=== PATIENT | female | born 1955 | race Caucasian/White ===

== ENCOUNTER 2016-11-16 23:12 | Inpatient (IN) | payer MEDICAID ==
[~2016-11-16] VITALS: Ht 162.6 cm; Wt 85.9 kg
[~2016-11-16 23:12] MED LIST: ATOR40TA52 PO; BENZ100C97 PO; BUPR200T8 PO; BUSP5TAB51 PO; CYAN100L PO; DIPH2.5T47 PO; DULO60CA PO; ENAL2.5T PO; FURO20TA3 PO; LEVO750T3 PO; MELO-86 PO; OMEP20CA5 PO; PERCOT PO; POT8T PO; PROP80CA10 PO; SACC250C PO; TRAZ150T79 PO
[2016-11-17 00:16] LABS: Basophils # (auto) 0 uL; Basophils % (auto) 0.1 % (0.0-2.0); Eosinophils # (auto) 0.5 uL; Hematocrit 33.8 % (36.0-46.0); Hemoglobin 10.7 g/dL (12.2-16.2); Lymphocytes # (auto) 0.9 uL; Lymphocytes % (auto) 7.6 % (10.0-50.0); Mean Corpuscular Hemoglobin 29.4 pg (28.0-32.0); Mean Corpuscular Hgb Conc. 31.6 g/dL (32.0-36.0); Mean Corpuscular Volume 93.1 fL (80.0-100.0); Mean Platelet Volume 7.5 fL (7.4-10.4); Monocytes # (auto) 0.7 uL; Monocytes % (auto) 5.8 % (0.0-12.0); Neutrophils # (auto) 9.5 uL; Neutrophils % (auto) 82.5 % (37.0-80.0); Platelet Count (auto) 289 10^3/uL (140-450); Red Cell Distribution Width 15.3 % (11.6-16.0); SUSPECT VIEW TRANSMISSION; White Blood Cell 11.5 10^3/uL (4.4-10.8)
[2016-11-17 00:37] LABS: INR 1.05 (0.9-1.15); Partial Thromboplastin Time 26.8 sec (22.64-33.71); Prothrombin Time 10.8 sec (9.37-12.3)
[2016-11-17 00:39] LABS: Albumin 2.6 g/dL (3.4-5.0); Anion Gap 9 (5-15); Aspartate Aminotransferase 11 U/L (15-37); BUN/Creatinine Ratio 15.3; Blood Urea Nitrogen 13 mg/dL (7-18); Calcium 8.4 mg/dL (8.5-10.1); Carbon Dioxide 30 mmol/L (21-32); Chloride 102 mmol/L (98-107); GFR African American 87 mL/min; GFR Non-African American 72 mL/min; Glucose 114 mg/dL (74-106); Potassium 4.6 mmol/L (3.5-5.1); Sodium 141 mmol/L (136-145)
[2016-11-17 00:42] LABS: Alkaline Phosphatase 53 U/L (45-117); Bilirubin, Total 0.4 mg/dL (0.2-1.0); Total Protein 5.7 g/dL (6.4-8.2)
[2016-11-17 00:47] LABS: B-Type Natriuretic Peptide 32.7 pg/mL (0-100)
[2016-11-17 00:56] LABS: Temperature: 20.7 C (20.0-25.0)
[2016-11-17] MEDS ORDERED: LEVOFLOXACIN 500MG 100 ML IV ONE (02:00)
[2016-11-17] MEDS ORDERED: ALBUTEROL SULF 2.5 MG/0.5ML(0.5%) NEB SOLN NEB ONE (02:00)
[2016-11-17] MEDS ORDERED: ONDANSETRON HCL 4 MG/2 ML VIAL IV ONE (02:00)
[2016-11-17] MEDS ORDERED: IPRATROPIUM BROM 0.5 MG/2.5ML INH SOL NEB ONE (02:00)
[2016-11-17] MEDS ORDERED: HYDROmorphone HCL 2 MG/ML VL IV ONE ×2 (02:00→05:15)
[2016-11-17] MEDS ORDERED: methylPREDNISolone SOD SUCC 125 MG/2 ML VL IV SCH (07:00)
[2016-11-17] MEDS ORDERED: SODIUM CHLORIDE 0.9% 1,000 ML IV SCH (07:16)
[2016-11-17] MEDS ORDERED: LACTULOSE 20Gm/30ML SOLN PO PRN (07:30)
[2016-11-17] MEDS: DULoxetine HCL 30 MG CAP PO SCH ×2 (08:52→22:00)
[2016-11-17] MEDS: POTASSIUM CHLORIDE 8 MEQ TAB PO SCH (08:52)
[2016-11-17] MEDS: FUROSEMIDE 20 MG TAB PO SCH (08:53)
[2016-11-17] MEDS: PANTOPRAZOLE SODIUM 40 MG/10 ML VIAL IV SCH (08:53)
[2016-11-17] MEDS: ENALAPRIL MALEATE 2.5 MG TAB PO SCH (08:55)
[2016-11-17] MEDS: ENOXAPARIN SOD 40 MG/0.4 ML SYRINGE SC SCH (09:00)
[2016-11-17 10:00] VITALS: BP 106/69
[2016-11-17] MEDS ORDERED: ENOXAPARIN SOD 30 MG/0.3 ML SYRINGE SC SCH (10:00)
[2016-11-17] MEDS ORDERED: PROPRANOLOL HCL 20 MG TAB PO SCH (10:00)
[2016-11-17] MEDS: ALBUTEROL SULF 2.5 MG/0.5ML(0.5%) NEB SOLN NEB SCH ×4 (10:09→22:50)
[2016-11-17] MEDS: IPRATROPIUM BROM 0.5 MG/2.5ML INH SOL NEB SCH ×4 (10:10→22:50)
[2016-11-17] MEDS ORDERED: PIPERACILLIN-TAZOB 2.25GM 50 ML IV SCH (12:00)
[2016-11-17] MEDS: PROPRANOLOL HCL 20 MG TAB PO SCH ×3 (12:00→22:00)
[2016-11-17 13:00] VITALS: BP 107/71
[2016-11-17] MEDS: busPIRone HCL 10 MG TAB PO SCH ×2 (14:19→21:57)
[2016-11-17] MEDS: OXYCODONE W/ ACETAMINOPHEN 5/325MG TABLET PO PRN (15:23)
[2016-11-17 16:59] VITALS: BP 104/67
[2016-11-17] MEDS: methylPREDNISolone SOD SUCC 40 MG/ML VL IV SCH ×2 (18:07→23:54)
[2016-11-17] MEDS: buPROPion HCL 100 MG TAB PO SCH (18:08)
[2016-11-17 20:00] VITALS: BP 85/58
[2016-11-17] MEDS: BUDESONIDE (INHALATION) 0.5 MG/2 ML NEB NEB SCH (20:16)
[2016-11-17 21:01] VITALS: BP 104/67
[2016-11-17] MEDS: traZODone HCL 50 MG TAB PO SCH (21:57)
[2016-11-17] MEDS: ATORVASTATIN 20 MG TAB PO SCH (22:00)
[2016-11-17 22:19] VITALS: BP 99/67
[2016-11-18] MEDS: LEVOFLOXACIN 500MG 100 ML IV SCH (01:58)
[2016-11-18] MEDS: IPRATROPIUM BROM 0.5 MG/2.5ML INH SOL NEB SCH ×6 (02:26→22:00)
[2016-11-18] MEDS: ALBUTEROL SULF 2.5 MG/0.5ML(0.5%) NEB SOLN NEB SCH ×6 (02:26→22:00)
[2016-11-18 05:10] VITALS: BP 111/72
[2016-11-18] MEDS: busPIRone HCL 10 MG TAB PO SCH ×3 (05:28→22:00)
[2016-11-18] MEDS: methylPREDNISolone SOD SUCC 40 MG/ML VL IV SCH ×3 (05:28→18:18)
[2016-11-18] MEDS: PROPRANOLOL HCL 20 MG TAB PO SCH ×4 (06:00→22:00)
[2016-11-18] MEDS: BUDESONIDE (INHALATION) 0.5 MG/2 ML NEB NEB SCH ×2 (06:09→22:00)
[2016-11-18] MEDS: buPROPion HCL 100 MG TAB PO SCH ×2 (06:22→21:01)
[2016-11-18 06:36] LABS: Basophils # (auto) 0 uL; Eosinophils # (auto) 0 uL; Eosinophils % (auto) 0.1 % (0.0-7.0); Hematocrit 30.6 % (36.0-46.0); Hemoglobin 9.6 g/dL (12.2-16.2); Lymphocytes # (auto) 0.4 uL; Lymphocytes % (auto) 5.7 % (10.0-50.0); Mean Corpuscular Hemoglobin 29.6 pg (28.0-32.0); Mean Corpuscular Hgb Conc. 31.5 g/dL (32.0-36.0); Mean Corpuscular Volume 93.9 fL (80.0-100.0); Mean Platelet Volume 7.6 fL (7.4-10.4); Monocytes # (auto) 0.4 uL; Monocytes % (auto) 5.5 % (0.0-12.0); Neutrophils # (auto) 6.3 uL; Neutrophils % (auto) 88.7 % (37.0-80.0); Platelet Count (auto) 300 10^3/uL (140-450); Red Cell Distribution Width 15.1 % (11.6-16.0); White Blood Cell 7.1 10^3/uL (4.4-10.8)
[2016-11-18 06:51] LABS: Albumin 2.3 g/dL (3.4-5.0); BUN/Creatinine Ratio 25.7; Bilirubin, Total 0.1 mg/dL (0.2-1.0); Calcium 8.9 mg/dL (8.5-10.1); Potassium 4.2 mmol/L (3.5-5.1); Total Protein 6.3 g/dL (6.4-8.2)
[2016-11-18 09:00] VITALS: BP 99/67
[2016-11-18] MEDS: PANTOPRAZOLE SODIUM 40 MG/10 ML VIAL IV SCH (09:42)
[2016-11-18] MEDS: ENOXAPARIN SOD 40 MG/0.4 ML SYRINGE SC SCH (09:43)
[2016-11-18] MEDS: DULoxetine HCL 30 MG CAP PO SCH ×2 (09:43→22:01)
[2016-11-18] MEDS: FUROSEMIDE 20 MG TAB PO SCH (09:44)
[2016-11-18] MEDS: OXYCODONE W/ ACETAMINOPHEN 5/325MG TABLET PO PRN ×2 (09:44→16:16)
[2016-11-18] MEDS: POTASSIUM CHLORIDE 8 MEQ TAB PO SCH (09:45)
[2016-11-18] MEDS: ENALAPRIL MALEATE 2.5 MG TAB PO SCH (10:00)
[2016-11-18 13:00] VITALS: BP 115/73
[2016-11-18 20:00] VITALS: BP 119/79
[2016-11-18 21:59] VITALS: BP 119/79
[2016-11-18] MEDS: traZODone HCL 50 MG TAB PO SCH (22:01)
[2016-11-18] MEDS: ATORVASTATIN 20 MG TAB PO SCH (22:01)
[2016-11-19] MEDS: methylPREDNISolone SOD SUCC 40 MG/ML VL IV SCH ×2 (00:26→05:17)
[2016-11-19] MEDS: LEVOFLOXACIN 500MG 100 ML IV SCH (01:33)
[2016-11-19] MEDS: IPRATROPIUM BROM 0.5 MG/2.5ML INH SOL NEB SCH ×3 (02:00→10:32)
[2016-11-19] MEDS: ALBUTEROL SULF 2.5 MG/0.5ML(0.5%) NEB SOLN NEB SCH ×3 (02:00→10:32)
[2016-11-19 04:45] VITALS: BP 110/71
[2016-11-19] MEDS: buPROPion HCL 100 MG TAB PO SCH (05:55)
[2016-11-19] MEDS: busPIRone HCL 10 MG TAB PO SCH (05:55)
[2016-11-19] MEDS: PROPRANOLOL HCL 20 MG TAB PO SCH (05:57)
[2016-11-19] MEDS: BUDESONIDE (INHALATION) 0.5 MG/2 ML NEB NEB SCH (06:27)
[2016-11-19 09:00] VITALS: BP 136/84
[2016-11-19] MEDS: OXYCODONE W/ ACETAMINOPHEN 5/325MG TABLET PO PRN (09:11)
== END 2016-11-19 11:15 | disposition home or self-care (01) | DRG 139 ==
LOC: ER 23:12 → TELE 23:13 → TELE-EAST 11-17 10:00 → EAST 11-18 23:51
PROVIDERS: ADMIT Family Medicine; ATTEND Hospitalist
DX: J18.1 Lobar pneumonia, unspecified organism (principal); J96.21 Acute and chronic respiratory failure with hypoxia; J44.0 Chronic obstructive pulmonary disease with (acute) lower respiratory infection; J44.1 Chronic obstructive pulmonary disease with (acute) exacerbation; J45.31 Mild persistent asthma with (acute) exacerbation; F03.90 Unspecified dementia, unspecified severity, without behavioral disturbance, psychotic disturbance, mood disturbance, and anxiety; I50.9 Heart failure, unspecified; I11.0 Hypertensive heart disease with heart failure; Z99.81 Dependence on supplemental oxygen; K27.9 Peptic ulcer, site unspecified, unspecified as acute or chronic, without hemorrhage or perforation; E78.5 Hyperlipidemia, unspecified; K21.9 Gastro-esophageal reflux disease without esophagitis; Z85.118 Personal history of other malignant neoplasm of bronchus and lung; Z92.21 Personal history of antineoplastic chemotherapy; Z92.3 Personal history of irradiation; J20.9 Acute bronchitis, unspecified; G89.29 Other chronic pain; I25.10 Atherosclerotic heart disease of native coronary artery without angina pectoris; I25.2 Old myocardial infarction; Z83.3 Family history of diabetes mellitus; M19.90 Unspecified osteoarthritis, unspecified site; Z86.2 Personal history of diseases of the blood and blood-forming organs and certain disorders involving the immune mechanism; Z88.5 Allergy status to narcotic agent; Z88.0 Allergy status to penicillin; Z88.8 Allergy status to other drugs, medicaments and biological substances; Z90.710 Acquired absence of both cervix and uterus; Z90.89 Acquired absence of other organs; Z98.890 Other specified postprocedural states
CPT/HCPCS: 36415; 71010; 80053; 80061; 83880; 84484; 85025; 85379; 85610; 85730; 87040; 87070; 87081; 87205; 93005; 94640; 94761; 96365; 96375; 97001; 97116; C9113; J1956; J2405

== ENCOUNTER 2017-01-23 22:31 | Inpatient (IN) | payer MEDICAID ==
[~2017-01-23] VITALS: Ht 162.6 cm; Wt 91.4 kg
[~2017-01-23 22:31] MED LIST changes: -LEVO750T3 PO
[2017-01-23] MEDS ORDERED: methylPREDNISolone SOD SUCC 125 MG/2 ML VL ONE (22:52)
[2017-01-23] MEDS ORDERED: methylPREDNISolone SOD SUCC 125 MG/2 ML VL IV ONE (23:00)
[2017-01-23] MEDS ORDERED: IPRATROPIUM BROM 0.5 MG/2.5ML INH SOL NEB ONE (23:00)
[2017-01-23] MEDS ORDERED: ALBUTEROL SULF 2.5 MG/0.5ML(0.5%) NEB SOLN NEB ONE (23:00)
[2017-01-23 23:14] VITALS: BP 105/57
[2017-01-23 23:33] LABS: Basophils # (auto) 0 uL; Basophils % (auto) 0.2 % (0.0-2.0); Eosinophils # (auto) 0.4 uL; Eosinophils % (auto) 7.1 % (0.0-7.0); Hematocrit 29.6 % (36.0-46.0); Hemoglobin 9.5 g/dL (12.2-16.2); Lymphocytes # (auto) 0.7 uL; Lymphocytes % (auto) 13.2 % (10.0-50.0); Mean Corpuscular Hemoglobin 28.6 pg (28.0-32.0); Mean Corpuscular Volume 89.6 fL (80.0-100.0); Mean Platelet Volume 7.8 fL (7.4-10.4); Monocytes # (auto) 0.6 uL; Monocytes % (auto) 10.5 % (0.0-12.0); Neutrophils # (auto) 3.8 uL; Platelet Count (auto) 252 10^3/uL (140-450); Red Cell Distribution Width 16.9 % (11.6-16.0); White Blood Cell 5.5 10^3/uL (4.4-10.8)
[2017-01-23 23:34] LABS: Albumin 2.6 g/dL (3.4-5.0); Alkaline Phosphatase 77 U/L (45-117); Anion Gap 8 (5-15); Aspartate Aminotransferase 162 U/L (15-37); BUN/Creatinine Ratio 24.1; Bilirubin, Total 0.3 mg/dL (0.2-1.0); Blood Urea Nitrogen 32 mg/dL (7-18); Calcium 8.4 mg/dL (8.5-10.1); Carbon Dioxide 28 mmol/L (21-32); Chloride 109 mmol/L (98-107); GFR African American 52 mL/min; GFR Non-African American 43 mL/min; Glucose 98 mg/dL (74-106); Magnesium 2.2 mg/dL (1.6-2.6); Potassium 4.2 mmol/L (3.5-5.1); Sodium 145 mmol/L (136-145); Total Protein 6.9 g/dL (6.4-8.2)
[2017-01-24 00:29] LABS: B-Type Natriuretic Peptide 24.5 pg/mL (0-100); Temperature: 22.7 C (20.0-25.0)
[2017-01-24 01:23] VITALS: BP 96/71
[2017-01-24] MEDS ORDERED: IPRATROPIUM BROM 0.5 MG/2.5ML INH SOL ONE (06:22)
[2017-01-24] MEDS ORDERED: ALBUTEROL SULF 2.5 MG/0.5ML(0.5%) NEB SOLN ONE (06:22)
[2017-01-24] MEDS ORDERED: ALBUTEROL SULF 2.5 MG/0.5ML(0.5%) NEB SOLN NEB PRN (07:15)
[2017-01-24] MEDS ORDERED: IPRATROPIUM BROM 0.5 MG/2.5ML INH SOL NEB PRN (07:15)
[2017-01-24] MEDS ORDERED: NITROGLYCERIN 0.4 MG SL TAB SL PRN (07:15)
[2017-01-24] MEDS ORDERED: DOCUSATE SOD 100 MG CAP PO PRN (07:15)
[2017-01-24] MEDS ORDERED: ACETAMINOPHEN 325 MG TAB PO PRN (07:15)
[2017-01-24] MEDS ORDERED: MORPHINE SULF INJ 2 MG/ML SYRINGE 1ML IV PRN ×2 (07:15)
[2017-01-24] MEDS: ONDANSETRON HCL 4 MG/2 ML VIAL IV PRN (08:15)
[2017-01-24] MEDS: HYDROcodone-ACET 5/325MG TAB PO PRN ×4 (08:16→20:35)
[2017-01-24 08:40] VITALS: BP 103/70
[2017-01-24 09:00] VITALS: BP_SYST 111; BP_SYST 115; BP_DIAS 68; BP_DIAS 70
[2017-01-24] MEDS: DULoxetine HCL 30 MG CAP PO SCH ×2 (09:50→21:27)
[2017-01-24] MEDS: ENOXAPARIN SOD 40 MG/0.4 ML SYRINGE SC SCH (09:50)
[2017-01-24] MEDS: FAMOTIDINE 20 MG TAB PO SCH ×2 (09:50→21:28)
[2017-01-24] MEDS: ENALAPRIL MALEATE 2.5 MG TAB PO SCH (10:00)
[2017-01-24] MEDS: PROPRANOLOL HCL 20 MG TAB PO SCH ×2 (10:00→21:28)
[2017-01-24] MEDS ORDERED: methylPREDNISolone SOD SUCC 125 MG/2 ML VL IV SCH (10:00)
[2017-01-24 13:00] VITALS: BP 111/55
[2017-01-24] MEDS ORDERED: HYDROmorphone HCL 2 MG/ML VL ONE (14:25)
[2017-01-24] MEDS: HYDROmorphone HCL 2 MG/ML VL IV PRN ×3 (14:34→23:21)
[2017-01-24] MEDS: SODIUM CHLORIDE 0.9% 1,000 ML IV SCH (14:38)
[2017-01-24 15:44] LABS: Urine Bilirubin Negative (Negative); Urine Color Yellow (Yellow); Urine Glucose Normal (Normal); Urine Ketone Negative (Negative); Urine Nitrite Negative (Negative); Urine RBC 12 /hpf (0 - 4); Urine Squamous Epithelial Cell FEW /hpf (<5); Urine Urobilinogen Normal (Negative); Urine pH 5.5 (5.0-8.0)
[2017-01-24 15:45] LABS: Urine Blood 2+ /uL (Negative)
[2017-01-24] MEDS: DOXYCYCLINE 100 MG TAB/CAP PO SCH (16:11)
[2017-01-24 17:04] VITALS: BP 122/75
[2017-01-24] MEDS: buPROPion HCL 100 MG TAB PO SCH (18:35)
[2017-01-24] MEDS: methylPREDNISolone SOD SUCC 40 MG/ML VL IV SCH (21:26)
[2017-01-24] MEDS: ATORVASTATIN 20 MG TAB PO SCH (21:26)
[2017-01-24 22:34] VITALS: BP 127/76
[2017-01-25] MEDS: HYDROmorphone HCL 2 MG/ML VL IV PRN ×5 (03:13→22:23)
[2017-01-25] MEDS: DOXYCYCLINE 100 MG TAB/CAP PO SCH ×2 (03:14→14:34)
[2017-01-25 05:33] VITALS: BP 130/80
[2017-01-25] MEDS: buPROPion HCL 100 MG TAB PO SCH ×2 (06:26→18:08)
[2017-01-25 06:35] LABS: Basophils # (auto) 0 uL; Eosinophils # (auto) 0 uL; Hematocrit 27.9 % (36.0-46.0); Hemoglobin 9.1 g/dL (12.2-16.2); Lymphocytes # (auto) 0.3 uL; Lymphocytes % (auto) 4.6 % (10.0-50.0); Mean Corpuscular Hemoglobin 28.9 pg (28.0-32.0); Mean Corpuscular Hgb Conc. 32.6 g/dL (32.0-36.0); Mean Corpuscular Volume 88.5 fL (80.0-100.0); Mean Platelet Volume 7.6 fL (7.4-10.4); Monocytes # (auto) 0.3 uL; Monocytes % (auto) 4.1 % (0.0-12.0); Neutrophils # (auto) 6.5 uL; Neutrophils % (auto) 91.3 % (37.0-80.0); Platelet Count (auto) 276 10^3/uL (140-450); Red Cell Distribution Width 16.1 % (11.6-16.0); White Blood Cell 7.1 10^3/uL (4.4-10.8)
[2017-01-25 06:48] LABS: Albumin 2.4 g/dL (3.4-5.0); BUN/Creatinine Ratio 42.6; Calcium 8.6 mg/dL (8.5-10.1); Potassium 5.5 mmol/L (3.5-5.1)
[2017-01-25 06:50] LABS: Bilirubin, Total 0.2 mg/dL (0.2-1.0); Total Protein 6.5 g/dL (6.4-8.2)
[2017-01-25 09:00] VITALS: BP 130/84
[2017-01-25] MEDS: FAMOTIDINE 20 MG TAB PO SCH ×2 (09:43→22:23)
[2017-01-25] MEDS: DULoxetine HCL 30 MG CAP PO SCH ×2 (09:44→22:21)
[2017-01-25] MEDS: methylPREDNISolone SOD SUCC 40 MG/ML VL IV SCH ×2 (09:45→22:21)
[2017-01-25] MEDS: ENOXAPARIN SOD 40 MG/0.4 ML SYRINGE SC SCH (09:45)
[2017-01-25] MEDS: ENALAPRIL MALEATE 2.5 MG TAB PO SCH (09:45)
[2017-01-25] MEDS: PROPRANOLOL HCL 20 MG TAB PO SCH ×2 (09:48→22:22)
[2017-01-25] MEDS: SODIUM CHLORIDE 0.9% 1,000 ML IV SCH ×2 (09:54→12:37)
[2017-01-25] MEDS ORDERED: IOHEXOL 300 MG/ML 100ML BOTTLE IJ ONE ×2 (10:03→11:07)
[2017-01-25 13:00] VITALS: BP 137/82
[2017-01-25 17:00] VITALS: BP 137/84
[2017-01-25 21:57] VITALS: BP 140/86
[2017-01-25] MEDS: ATORVASTATIN 20 MG TAB PO SCH (22:23)
[2017-01-26] MEDS: HYDROmorphone HCL 2 MG/ML VL IV PRN ×3 (02:10→11:28)
[2017-01-26] MEDS: DOXYCYCLINE 100 MG TAB/CAP PO SCH (02:10)
[2017-01-26] MEDS: SODIUM CHLORIDE 0.9% 1,000 ML IV SCH (04:47)
[2017-01-26 05:11] VITALS: BP 121/85
[2017-01-26] MEDS: buPROPion HCL 100 MG TAB PO SCH (05:30)
[2017-01-26 06:37] LABS: Hematocrit 29.4 % (36.0-46.0); Hemoglobin 9.5 g/dL (12.2-16.2)
[2017-01-26 07:09] LABS: Calcium 8.8 mg/dL (8.5-10.1); Potassium 4.4 mmol/L (3.5-5.1)
[2017-01-26 08:19] LABS: BUN/Creatinine Ratio 36.4
[2017-01-26] MEDS: ONDANSETRON HCL 4 MG/2 ML VIAL IV PRN (08:51)
[2017-01-26 09:00] VITALS: BP 157/94
[2017-01-26] MEDS: ENOXAPARIN SOD 40 MG/0.4 ML SYRINGE SC SCH (09:29)
[2017-01-26] MEDS: methylPREDNISolone SOD SUCC 40 MG/ML VL IV SCH (09:29)
[2017-01-26] MEDS: FAMOTIDINE 20 MG TAB PO SCH (09:29)
[2017-01-26] MEDS: PROPRANOLOL HCL 20 MG TAB PO SCH (09:30)
[2017-01-26] MEDS: ENALAPRIL MALEATE 2.5 MG TAB PO SCH (09:30)
[2017-01-26] MEDS: DULoxetine HCL 30 MG CAP PO SCH (09:40)
[2017-01-26 12:28] VITALS: BP 156/99
[2017-01-26] MEDS ORDERED: POTASSIUM CHL 20 Meq TABLET PO ONE (12:30)
[2017-01-26] MEDS ORDERED: FUROSEMIDE 20 MG/2 ML VIAL IV ONE (12:30)
[2017-01-26 13:00] VITALS: BP 156/99
== END 2017-01-26 16:15 | disposition home or self-care (01) | DRG 133 ==
LOC: EDBD 22:31 → ER 22:31 → TELE-EAST 22:32 → TELE-E-ADS 01-24 07:57 → TELE-EAST 01-24 09:48
PROVIDERS: ADMIT Internal Medicine; ATTEND Internal Medicine
PROC: 5A09357 Assistance with Respiratory Ventilation, Less than 24 Consecutive Hours, Continuous Positive Airway Pressure (ICD-10-PCS; principal; 2017-01-23)
DX: J96.21 Acute and chronic respiratory failure with hypoxia (principal); N17.0 Acute kidney failure with tubular necrosis; E43 Unspecified severe protein-calorie malnutrition; J44.0 Chronic obstructive pulmonary disease with (acute) lower respiratory infection; I50.32 Chronic diastolic (congestive) heart failure; I13.0 Hypertensive heart and chronic kidney disease with heart failure and stage 1 through stage 4 chronic kidney disease, or unspecified chronic kidney disease; N18.3 Chronic kidney disease, stage 3 (moderate); D63.8 Anemia in other chronic diseases classified elsewhere; J20.9 Acute bronchitis, unspecified; E66.9 Obesity, unspecified; E78.5 Hyperlipidemia, unspecified; F03.90 Unspecified dementia, unspecified severity, without behavioral disturbance, psychotic disturbance, mood disturbance, and anxiety; M19.90 Unspecified osteoarthritis, unspecified site; J44.1 Chronic obstructive pulmonary disease with (acute) exacerbation; I25.10 Atherosclerotic heart disease of native coronary artery without angina pectoris; W19.XXXA Unspecified fall, initial encounter; M54.5 Low back pain; K21.9 Gastro-esophageal reflux disease without esophagitis; Z83.3 Family history of diabetes mellitus; Z87.11 Personal history of peptic ulcer disease; Z99.81 Dependence on supplemental oxygen; I25.2 Old myocardial infarction; Z85.89 Personal history of malignant neoplasm of other organs and systems; Z90.49 Acquired absence of other specified parts of digestive tract; Z90.710 Acquired absence of both cervix and uterus; Z68.34 Body mass index [BMI] 34.0-34.9, adult; Z80.8 Family history of malignant neoplasm of other organs or systems; Z88.6 Allergy status to analgesic agent; Z88.0 Allergy status to penicillin; Z88.8 Allergy status to other drugs, medicaments and biological substances; Z79.899 Other long term (current) drug therapy; Y93.89 Activity, other specified; Y92.89 Other specified places as the place of occurrence of the external cause; Y99.8 Other external cause status
CPT/HCPCS: 36415; 36600; 71010; 71260; 72128; 72131; 80048; 80053; 81001; 82805; 83605; 83735; 83880; 84132; 84484; 85014; 85018; 85025; 87040; 87081; 93005; 94640; 94660; 94761; 96374; 96375; J2405

== ENCOUNTER 2017-04-11 12:56 | Emergency (ER) | payer MEDICAID ==
[~2017-04-11] VITALS: Ht 154.9 cm; Wt 81.6 kg
[~2017-04-11 12:56] MED LIST changes: -OMEP20CA5 PO; +OMEP20CA74 PO
[2017-04-11 13:52] VITALS: BP 93/59
[2017-04-11 13:55] LABS: Urine RBC None Seen /hpf (0 - 4)
[2017-04-11 14:01] LABS: Urine Bilirubin Negative (Negative); Urine Blood Negative /uL (Negative); Urine Color Yellow (Yellow); Urine Glucose Normal (Normal); Urine Ketone Negative (Negative); Urine Mucus FEW (None Seen); Urine Nitrite Negative (Negative); Urine Squamous Epithelial Cell FEW /hpf (<5); Urine Urobilinogen Normal (Negative)
[2017-04-11 14:49] LABS: Allen Test Yes; Base Excess 14.8 mmol/L (-2.0-2.0); Blood 02Sat 90.8 % (96-100); Blood COHb 0.3 % (0.5-1.5); Blood MetHb 0.1 % (0.0-1.5); HCO3 43.6 mmol/L (22-26.0); HHb 9.2 % (0.0-5.0); MODE NASAL CANNULA; O2Hb 90.4 % (94.0-97.0); PCO2 80.1 mmHg (35.0-45.0); PCO2(T) 80.1 mmHg (35.0-45.0); PO2 62.3 mmHg (80.0-100.0); PO2(T) 62.3 mmHg (80.0-100.0); Sample Type Arterial; pH 7.354 (7.350-7.450)
== END 2017-04-11 15:04 | disposition home or self-care (01) ==
LOC: EDBD 12:56 → ER 13:12
DX: R06.00 Dyspnea, unspecified (principal); R11.0 Nausea; J44.9 Chronic obstructive pulmonary disease, unspecified; M19.90 Unspecified osteoarthritis, unspecified site; I25.10 Atherosclerotic heart disease of native coronary artery without angina pectoris; K21.9 Gastro-esophageal reflux disease without esophagitis; E78.5 Hyperlipidemia, unspecified; I11.0 Hypertensive heart disease with heart failure; I25.2 Old myocardial infarction; Z90.710 Acquired absence of both cervix and uterus; Z90.49 Acquired absence of other specified parts of digestive tract
CPT/HCPCS: 36600; 81001; 82805; 94761

== ENCOUNTER 2018-03-06 07:53 | Emergency (ER) | payer MEDICAID ==
[~2018-03-06] VITALS: Ht 162.6 cm; Wt 86.7 kg
[~2018-03-06 07:53] MED LIST changes: +BUPR200T PO; -BUPR200T8 PO; -MELO-86 PO; +MELO1TAB56 PO
[2018-03-06 08:32] VITALS: BP 143/80
== END 2018-03-06 09:08 | disposition home or self-care (01) ==
LOC: ER 07:57
DX: S90.31XA Contusion of right foot, initial encounter (principal); I11.0 Hypertensive heart disease with heart failure; I50.9 Heart failure, unspecified; I25.2 Old myocardial infarction; K21.9 Gastro-esophageal reflux disease without esophagitis; J44.9 Chronic obstructive pulmonary disease, unspecified; Z90.710 Acquired absence of both cervix and uterus; Z90.89 Acquired absence of other organs; Z79.899 Other long term (current) drug therapy; Z88.6 Allergy status to analgesic agent; Z88.0 Allergy status to penicillin; X58.XXXA Exposure to other specified factors, initial encounter; Y93.89 Activity, other specified; Y99.8 Other external cause status; Y92.89 Other specified places as the place of occurrence of the external cause
CPT/HCPCS: 73630

== ENCOUNTER 2019-12-23 08:45 | Emergency (ER) | payer MEDICAID ==
[~2019-12-23] VITALS: Ht 165.1 cm; Wt 74.4 kg
[~2019-12-23 08:45] MED LIST changes: +AML5T PO; +BACL10TA PO; -BENZ100C97 PO; +CALC600T80 PO; +CARB25TA22 PO; +CLON0.5T3 PO; -CYAN100L PO; -DIPH2.5T47 PO; -ENAL2.5T PO; +GABA300C10 PO; +HYDR2TAB58 PO; +LORA-622 PO; -MELO1TAB56 PO; +MET25T PO; -OMEP20CA74 PO; +OMEP20TA PO; +PANT40T PO; +PRED1PAK9 PO; +PRED20TA2 PO; +PROM25TA5 PO; -PROP80CA10 PO; +SENN1TAB14 PO; -TRAZ150T79 PO; +TRAZ50TA2 PO
[2019-12-23 09:20] LABS: Basophils # (auto) 0 10 ^3/uL (0-0.2); Hemoglobin 10.5 g/dL (12.2-16.2); Lymphocytes # (auto) 0.8 10 ^3/uL (0.4-5.4); Monocytes # (auto) 0.8 10 ^3/uL (0-1.3); White Blood Cell 5.6 10^3/uL (4.4-10.8)
[2019-12-23 09:21] LABS: Basophils % (auto) 0.8 % (0.0-2.0); Eosinophils # (auto) 0.6 10 ^3/uL (0-0.8); Hematocrit 32.4 % (36.0-46.0); Lymphocytes % (auto) 13.3 % (10.0-50.0); Mean Corpuscular Hgb Conc. 32.5 g/dL (32.0-36.0); Mean Corpuscular Volume 89.2 fL (80.0-100.0); Monocytes % (auto) 14.1 % (0.0-12.0); Neutrophils # (auto) 3.5 10 ^3/uL (1.6-8.6); Neutrophils % (auto) 61.8 % (37.0-80.0); Platelet Count (auto) 501 10^3/uL (140-450); Red Blood Cells 3.63 10^6/uL (4.0-5.20); Red Cell Distribution Width 15.7 % (11.8-14.3)
[2019-12-23 09:45] LABS: Potassium 3.2 mmol/L (3.5-5.1)
[2019-12-23 09:48] LABS: Albumin 3.1 g/dL (3.4-5.0); BUN/Creatinine Ratio 24.1
[2019-12-23 09:50] LABS: Bilirubin, Total 0.3 mg/dL (0.2-1.0); Total Protein 6.8 g/dL (6.4-8.2)
[2019-12-23 10:13] LABS: Urine Bacteria NONE SEEN /hpf (None Seen); Urine Blood Negative /uL (Negative); Urine Mucus FEW (None Seen); Urine Specific Gravity 1.027 (1.001-1.035); Urine WBC 4 /hpf (0 - 5)
[2019-12-23] MEDS ORDERED: HYDROcodone-ACET 5/325MG TAB PO ONE (12:45)
[2019-12-23] MEDS ORDERED: POTASSIUM EFFERVESENT TAB 25 MEQ PO ONE (15:30)
[2019-12-23 16:58] VITALS: BP 126/69
== END 2019-12-23 16:59 | disposition home or self-care (01) ==
LOC: EDBD 08:45 → ER 08:45
DX: J44.1 Chronic obstructive pulmonary disease with (acute) exacerbation (principal); F41.1 Generalized anxiety disorder; N39.0 Urinary tract infection, site not specified; F32.9 Major depressive disorder, single episode, unspecified; E87.6 Hypokalemia; E44.1 Mild protein-calorie malnutrition; F17.210 Nicotine dependence, cigarettes, uncomplicated; I11.0 Hypertensive heart disease with heart failure; I50.9 Heart failure, unspecified; K21.9 Gastro-esophageal reflux disease without esophagitis; E78.5 Hyperlipidemia, unspecified; Z90.710 Acquired absence of both cervix and uterus; Z68.27 Body mass index [BMI] 27.0-27.9, adult
CPT/HCPCS: 36415; 71045; 80053; 81001; 85025; 93005

== ENCOUNTER 2019-12-27 04:52 | Inpatient (IN) | payer MEDICAID ==
[~2019-12-27] VITALS: Ht 165.1 cm; Wt 77.9 kg
[2019-12-27 06:18] LABS: Basophils # (auto) 0.1 10 ^3/uL (0-0.2); Eosinophils # (auto) 0.5 10 ^3/uL (0-0.8); Eosinophils % (auto) 7.7 % (0.0-7.0); Hematocrit 31.8 % (36.0-46.0); Hemoglobin 10.1 g/dL (12.2-16.2); Lymphocytes % (auto) 16.7 % (10.0-50.0); Mean Corpuscular Hemoglobin 28.7 pg (28.0-32.0); Mean Corpuscular Hgb Conc. 31.8 g/dL (32.0-36.0); Monocytes # (auto) 0.9 10 ^3/uL (0-1.3); Monocytes % (auto) 14.4 % (0.0-12.0); Neutrophils # (auto) 3.7 10 ^3/uL (1.6-8.6); Neutrophils % (auto) 60.2 % (37.0-80.0); Platelet Count (auto) 410 10^3/uL (140-450); Red Blood Cells 3.54 10^6/uL (4.0-5.20); Red Cell Distribution Width 15.5 % (11.8-14.3); White Blood Cell 6.1 10^3/uL (4.4-10.8)
[2019-12-27 06:34] LABS: INR 0.96 (0.9-1.15); Partial Thromboplastin Time 23.5 sec (23.64-32.05)
[2019-12-27 06:44] LABS: Alanine Aminotransferase 8 U/L (13-56); Albumin 2.7 g/dL (3.4-5.0); Anion Gap 4 (5-15); Aspartate Aminotransferase 15 U/L (15-37); BUN/Creatinine Ratio 12.3; Blood Urea Nitrogen 8 mg/dL (7-18); Calcium 8.1 mg/dL (8.5-10.1); Carbon Dioxide 39 mmol/L (21-32); Chloride 93 mmol/L (98-107); GFR African American 118 mL/min; GFR Non-African American 98 mL/min; Glucose 93 mg/dL (74-106); Magnesium 1.2 mg/dL (1.6-2.6); Sodium 136 mmol/L (136-145)
[2019-12-27 06:48] LABS: Alkaline Phosphatase 62 U/L (45-117); Bilirubin, Total 0.3 mg/dL (0.2-1.0); Total Protein 6.3 g/dL (6.4-8.2)
[2019-12-27] MEDS ORDERED: SODIUM CHLORIDE 0.9% 1,000 ML IV ONE ×2 (07:25→08:32)
[2019-12-27] MEDS ORDERED: POTASSIUM EFFERVESENT TAB 25 MEQ PO ONE (07:30)
[2019-12-27] MEDS: MAGNESIUM SULFATE 1GM/100ML 100 ML IV SCH ×3 (07:52→13:42)
[2019-12-27] MEDS ORDERED: HYDROmorphone HCL 2 MG/ML VL IV ONE ×2 (08:30→13:00)
[2019-12-27] MEDS ORDERED: ALBUTEROL SULF 2.5 MG/0.5ML(0.5%) NEB SOLN NEB ONE (08:30)
[2019-12-27] MEDS ORDERED: IPRATROPIUM BROM 0.5 MG/2.5ML INH SOL NEB ONE (08:30)
[2019-12-27] MEDS ORDERED: PROMETHAZINE HCL 25 MG/ML 1ML IV ONE ×2 (08:30→13:00)
[2019-12-27] MEDS ORDERED: IOHEXOL 300 MG/ML 100ML BOTTLE IJ ONE (08:38)
[2019-12-27 09:33] LABS: Urine Bacteria NONE SEEN /hpf (None Seen); Urine Blood Negative /uL (Negative); Urine Hyaline Cast FEW /lpf (0 - 2); Urine Mucus FEW (None Seen); Urine Specific Gravity 1.029 (1.001-1.035); Urine WBC 3 /hpf (0 - 5)
[2019-12-27] MEDS ORDERED: MAGNESIUM SULFATE 1GM/100ML 100 ML IV ONE (13:40)
[2019-12-27 14:00] LABS: Alcohol, Urine < 3.0 mg/dL (0-5); Amphetamine Screen, Urine NEGATIVE (NEGATIVE); Barbiturate Scree,Urine NEGATIVE (NEGATIVE); Benzodiazephine Screen, Urine NEGATIVE (NEGATIVE); Cannabinoid Screen, Urine NEGATIVE (NEGATIVE); Cocaine Screen, Urine NEGATIVE (NEGATIVE); Opiate Scree,Urine POSITIVE (NEGATIVE); Phencyclidine Screen, Urine NEGATIVE (NEGATIVE)
[2019-12-27] MEDS ORDERED: ONDANSETRON HCL 4 MG/2 ML VIAL IV PRN (15:15)
[2019-12-27] MEDS: LORazepam 2MG/ML-1ML VIAL IV PRN (15:40)
[2019-12-27] MEDS: HYDROmorphone HCL 2 MG/ML VL IV PRN ×2 (16:04→21:10)
[2019-12-27 17:17] LABS: Magnesium 2.4 mg/dL (1.6-2.6)
[2019-12-27 17:32] VITALS: BP 117/63
[2019-12-27] MEDS: D5W/SOD CHL 0.45%/KCL 20MEQ 1,000 ML IV SCH (17:45)
[2019-12-27] MEDS: ALBUTEROL SULF 2.5 MG/0.5ML(0.5%) NEB SOLN NEB SCH ×2 (18:21→22:11)
[2019-12-27] MEDS: BUDESONIDE (INHALATION) 0.5 MG/2 ML NEB NEB SCH (18:22)
[2019-12-27] MEDS: IPRATROPIUM BROM 0.5 MG/2.5ML INH SOL NEB SCH ×2 (18:22→22:11)
--- NOTE | 2019-12-27 18:51 | NUR ---
NGTUBE INSERTED TO 57. CONFIRMED BY OSCULATION. XR PER PROTOCOL ORDERED FOR PLACEMENT CONFIRMATION. TO BE CONECTED TO LOW CONTINUOUS SUCTION.
--- NOTE | 2019-12-27 19:25 | NUR ---
OPENING NOTE- NOC SHIFT PATIENT RESTING IN BED, BED IS LOCKED AT LOWEST POSITION, BED RAILS UP X2 AND HEAD OF BED IS UP >45 DEGREES. FAMILY AT BEDSIDE. GOOD FAMILY DYNAMICS NOTED. FAMILY IS AWARE VISITING HOURS ARE FROM 0800 TO 2000. BEDSIDE TABLE WITHIN REACH, CALL LIGHT WITHIN REACH. WILL CONTINUE TO MONITOR Q1H AND PRN.
--- NOTE | 2019-12-27 20:05 | NUR ---
PATIENT ENDORSED TO VIKAS VILLALOBOS FOR ASSIGNMENT CHANGE. COMPLETE PATIENT ASSESSMENT HAS NOT BEEN COMPLETED AT THIS TIME. NO S/SX OF DISTRESS OR SOB. BED ALARM ON.
--- NOTE | 2019-12-27 20:30 | NUR ---
OPENING NOTE RECEIVED REPORT FROM CITY DRIVER RN. ASSUMING ROLE OF CARE OF PATIENT AT THIS TIME. PATIENT SHOWING NO SIGN OF DISTRESS, SHORTNESS OF BREATH, AND PATIENT STATES PAIN IS 10/10 FROM GENERALIZED BODY PAINS. PATIENT WILL BE MEDICATED PER PAIN PROTOCOL WHEN AVAILABLE. PATIENT EDUCATED ON PLAN OF CARE AND PATIENT VERBALIZED UNDERSTANDING. BED LOWERED, CALL LIGHT WITHIN REACH, AND PATIENT WILL BE ROUNDED ON EVERY HOUR AND NEEDED.
[2019-12-27] MEDS: FAMOTIDINE (10MG/ML) 2ML VL IV SCH (21:10)
[2019-12-27 22:00] VITALS: BP 110/70
--- NOTE | 2019-12-28 00:22 | NUR ---
CALLED DOWN TO RADIOLOGY PATIENT'S CXR TO CONFIRM PLACEMENT NO READ YET. SPOKE WITH BAO IN RADIOLOGY. RESULTS WILL BE CALLED TO BE READ. WILL AWAIT CALL BACK OR RESULTS. PATIENT WILL BE SET TO LCS IF PLACEMENT CONFIRMED.
--- NOTE | 2019-12-28 00:31 | NUR ---
PATIENT REQUESTING PAIN MEDICINE. HOSPITALIST CONTACTED FOR INCREASE IN PAIN MEDICINE. PATIENT MADE AWARE OF TIME FRAME OF PAIN MEDICATION. PATIENT VERBALIZED UNDERSTANDING. PAIN MEDICINE WILL BE GIVEN PER PAIN PROTOCOL WHEN AVAILABLE.
--- NOTE | 2019-12-28 00:51 | NUR ---
NG TUBE PLACEMENT CONFIRMED. PATIENT WILL BE PLACED ON LCS PER ORDERS.
[2019-12-28] MEDS: HYDROmorphone HCL 2 MG/ML VL IV PRN ×6 (01:13→22:23)
[2019-12-28] MEDS: D5W/SOD CHL 0.45%/KCL 20MEQ 1,000 ML IV SCH ×2 (01:15→12:59)
--- NOTE | 2019-12-28 03:40 | NUR ---
PATIENT REQUESTING PAIN MEDICINE. PATIENT RESTING COMFORTABLY WATCHING. INFORMED PATIENT THAT MEDICINE IS NOT DUE UNTIL 0500. PATIENT VERBALIZED UNDERSTANDING. WILL ADMINISTER WHEN AVAILABLE.
[2019-12-28 05:56] VITALS: BP 122/77
[2019-12-28] MEDS: IPRATROPIUM BROM 0.5 MG/2.5ML INH SOL NEB SCH ×5 (06:05→22:37)
[2019-12-28] MEDS: ALBUTEROL SULF 2.5 MG/0.5ML(0.5%) NEB SOLN NEB SCH ×5 (06:05→22:37)
[2019-12-28 09:00] VITALS: BP 139/88
[2019-12-28] MEDS: FAMOTIDINE (10MG/ML) 2ML VL IV SCH ×2 (09:25→22:23)
[2019-12-28] MEDS: BUDESONIDE (INHALATION) 0.5 MG/2 ML NEB NEB SCH ×2 (09:48→22:37)
[2019-12-28 12:53] VITALS: BP 154/88
[2019-12-28] MEDS: LORazepam 2MG/ML-1ML VIAL IV PRN (15:25)
[2019-12-28 15:42] LABS: BUN/Creatinine Ratio 8.3; Calcium 8.6 mg/dL (8.5-10.1); Magnesium 1.8 mg/dL (1.6-2.6); Potassium 3.7 mmol/L (3.5-5.1)
--- NOTE | 2019-12-28 15:55 | NUR ---
VQ SCAN. PER NUCLEAR MEDICINE PATIENT CANNOT HAVE VQ SCAN DONE DUE TO PATIENT HAVING AN NG TUBE. RECOMMENDED CT SCAN.
--- NOTE | 2019-12-28 16:40 | NUR ---
TANYA GUALLPA REGARDING VQ SCAN. AWAITING CALL BACK.
[2019-12-28 17:00] VITALS: BP 140/98
--- NOTE | 2019-12-28 18:25 | NUR ---
PATIENT NG TUBE TO RIGHT NARE CONNECTED TO LCS. OUTPUT 100MLS OF CLEAR YELLOW/GREEN DRAINAGE.
--- NOTE | 2019-12-28 20:00 | NUR ---
Opening Shift Note Assumed care of patient, awake and alert, oriented x 4, clear speech, follows direction. On oxygen at 4L via NC with even and unlabored respirations, no S/S of distress or SOB. NGT to right nare on LCS. hypoactive bowel sounds, tender upon palpation. patient reports passing gas, abd binder on. patient denies nausea. patient is able to turn independently in bed, sacrum intact, no redness noted. patient uses bedpan with minimal assist. patient reports bowel movement today. patient report abd pain 10/10, instructed patient pain medication is not due at this this, offered patient ice packs, ice packs provided to abd area. Bed in lowest locked position with side rails up x 2 and call light within reach,m bed alarm on. Instructed on POC and to call for assist PRN, will continue to monitor for changes Q1hr and PRN.
--- NOTE | 2019-12-28 20:25 | NUR ---
DR. DIXON AT BEDSIDE FOR EVALUATION AND ASSESSMENT OF ABD. INFORMED DR. DIXON PATIENT CONTINUED TO ASK FOR PAIN MEDICATION DESPITE PAIN MEDICATION ALREADY GIVEN AT 1802, NO ORDERS RECEIVED FOR CHANGES IN PAIN MEDICATIONS, RECEIVED ORDER TO CHANGE FREQUENCY OF ATIVAN TO ATIVAN 0.5MG IV Q6 PRN ANXIETY. PER DR. DIXON, JAYDON REDUCTIONS WAS PERFORMED AT BEDSIDE ON 12/27/19, KEEP ABD BINDER IN PLACE, KEEP PATIENT NPO, CLAMP NGT, RESUME NGT TO LCS IF PATIENT HAS NAUSEA AND VOMITING, PATIENT IS TOO HIGH RISK FOR SURGERY, NO SURGICAL INTERVENTIONS AT THIS TIME, POSSIBLE GASTROGRAFIN TOMORROW TO ASSESS AND EVALUATE BOWELS.
[2019-12-28 22:00] VITALS: BP_SYST 135; BP_SYST 142; BP_DIAS 88; BP_DIAS 92
[2019-12-29] MEDS: LORazepam 2MG/ML-1ML VIAL IV PRN ×2 (00:55→08:40)
[2019-12-29] MEDS: HYDROmorphone HCL 2 MG/ML VL IV PRN ×5 (02:30→18:46)
[2019-12-29] MEDS: D5W/SOD CHL 0.45%/KCL 20MEQ 1,000 ML IV SCH ×3 (02:42→17:16)
[2019-12-29 05:00] VITALS: BP 144/99
[2019-12-29 05:49] LABS: Basophils # (auto) 0.1 10 ^3/uL (0-0.2); Eosinophils # (auto) 0.3 10 ^3/uL (0-0.8); Lymphocytes # (auto) 0.8 10 ^3/uL (0.4-5.4); Red Cell Distribution Width 15.4 % (11.8-14.3)
[2019-12-29 05:50] LABS: Eosinophils % (auto) 5.6 % (0.0-7.0); Hematocrit 32.5 % (36.0-46.0); Hemoglobin 10.7 g/dL (12.2-16.2); Lymphocytes % (auto) 13.5 % (10.0-50.0); Mean Corpuscular Hgb Conc. 32.8 g/dL (32.0-36.0); Mean Corpuscular Volume 88.4 fL (80.0-100.0); Monocytes % (auto) 17.7 % (0.0-12.0); Neutrophils # (auto) 3.7 10 ^3/uL (1.6-8.6); Neutrophils % (auto) 62.2 % (37.0-80.0); Nucleated Red Blood Cells % 0.1 %; Platelet Count (auto) 484 10^3/uL (140-450); Red Blood Cells 3.67 10^6/uL (4.0-5.20); White Blood Cell 5.9 10^3/uL (4.4-10.8)
[2019-12-29 06:04] LABS: Albumin 2.3 g/dL (3.4-5.0); Calcium 8.6 mg/dL (8.5-10.1); Potassium 3.4 mmol/L (3.5-5.1)
[2019-12-29 06:11] LABS: BUN/Creatinine Ratio 9.8; Bilirubin, Total 0.2 mg/dL (0.2-1.0); Total Protein 5.8 g/dL (6.4-8.2)
[2019-12-29] MEDS: ALBUTEROL SULF 2.5 MG/0.5ML(0.5%) NEB SOLN NEB SCH ×5 (06:35→22:03)
[2019-12-29] MEDS: IPRATROPIUM BROM 0.5 MG/2.5ML INH SOL NEB SCH ×5 (06:35→22:03)
--- NOTE | 2019-12-29 07:05 | NUR ---
CLOSING NOTE PATIENT AWAKE AND ALERT, ON OXYGEN AT 4L VIA NC WITH EVEN AND UNLABORED RESPIRATIONS, NO S/S OF DISTRESS. ABD BINDER IN PLACE. SCD'S ON TO BILATERAL LEGS WITH MACHINE ON. BED IN LOWEST LOCKED POSITION WITH SIDE RAILS UP X 2 AND CALL WITHIN REACH.
--- NOTE | 2019-12-29 07:24 | NUR ---
ENDORSED CARE TO DAY SHIFT GRISELDA ARSHAD
--- NOTE | 2019-12-29 08:40 | NUR ---
PT RESTING IN BED, NO DISTRESS NOTED. PT REPORTS 10/10 PAIN IN BACK AND LEGS, PRN PAIN MED ALREADY GIVEN BY CONSTRUCTION TRADES CONTRACTOR. NG TUBE AT 57 CM RIGHT NARE, NG TUBE CLAMPED PER MD ORDER. PT REPORTS MODERATE ANXIETY, PRN ATIVAN GIVEN, WILL CONTINUE TO MONITOR. PT NPO, NO BREAKFAST AT BEDSIDE.
[2019-12-29 09:00] VITALS: BP 147/88
--- NOTE | 2019-12-29 09:14 | NUR ---
RECEIVED IN REPORT PT MAY HAVE GASTROGRAPH STUDY TODAY, CALLED RADIOLOGY, RADIOLOGY REPORTS SHE IS NOT ON THE SCHEDULE TODAY.
[2019-12-29] MEDS: BUDESONIDE (INHALATION) 0.5 MG/2 ML NEB NEB SCH ×2 (10:00→19:44)
[2019-12-29] MEDS: FAMOTIDINE (10MG/ML) 2ML VL IV SCH ×2 (10:45→21:00)
--- NOTE | 2019-12-29 12:54 | NUR ---
PT REPORTS SHE IS NAUSEOUS, WILL GIVE PRN ZOFRAN AND PLACE BACK ON LCS.
[2019-12-29 12:56] VITALS: BP 153/94
[2019-12-29] MEDS ORDERED: POTASSIUM CHLORIDE 20 MEQ, LIDOCAINE 1% (LOCAL ANESTH.) 2 ML in SODIUM CHL 0.9% 100 ML IV ONE (15:45)
--- NOTE | 2019-12-29 16:09 | NUR ---
DR GUALLPA SAW PATIENT, NOTIFIED MD PT BP 153/94 AND PRN BP MED IS NEEDED. NOTIFIED MD PT FEELS NAUSEOUS AND WAS PUT BACK ON LCS. MD LÓPEZ, MD REPORTS TO NOTIFY DR DIXON. CALLED DR DIXON'S OFFICE AND LEFT MESSAGE WITH STATISTICAL METHODS TEACHER, REPORTING NAUSEA, AWAITING CALL BACK.
[2019-12-29 17:06] VITALS: BP 140/93
--- NOTE | 2019-12-29 19:55 | NUR ---
Opening Shift Note Assumed care of patient, awake and alert, oriented x 4, clear speech, follows direction. On oxygen at 4L via NC with even and unlabored respirations, no S/S of distress or SOB. NGT to right nare on LCS. active bowel sounds, tender upon palpation. patient reports passing gas, abd binder on. patient denies nausea. patient is able to turn independently in bed, sacrum intact, no redness noted. patient uses bedpan with minimal assist. patient report abd pain and back 10/10, patient reports IV is leaking, and does not feel like she received her pain medications administered at 1850. Assessed PIV to right forearm, IV leaking, IV was removed and DC'd with clean sterile technique, catheter fully intact. Pressure dressing applied to site. Patient tolerated well. Bed in lowest locked position with side rails up x 2 and call light within reach,m bed alarm on. Instructed on POC and to call for assist PRN, will continue to monitor for changes Q1hr and PRN.
--- NOTE | 2019-12-29 20:00 | NUR ---
Paged Hospitalist RE: pain medication IV leaking, patient reports she does not feel like she received her pain medication, reports abd and back pain 10/10. patient reports Dilaudid is effective for her and brings pain level down to a 7/10, patient reports 7/10 is a tolerable pain level for her. awaiting call back. will continue care.
--- NOTE | 2019-12-29 20:20 | NUR ---
IV insertion IV access obtained, via clean sterile technique by inserting 22 gauge catheter at left forearm after 1 attempt(s). IV secured properly. No trauma to site. Patient tolerated well. NOTE:
--- NOTE | 2019-12-29 20:25 | NUR ---
Patient requesting supercharger repair supervisor and RT supervisor pipeline patient reports she does not want to discuss the problem with primary RN. notified supercharger repair supervisor Maria Eugenia. will continue care.
--- NOTE | 2019-12-29 20:30 | NUR ---
New order received updated on patient status, new order received for Dilaudid 1mg IV x1, read back and verified, will carry out orders and continue care. Addendum: 12/30/19 at 0548 by Priti Diaz RN RN spoke with GAYE Mayo, order given.
[2019-12-29] MEDS ORDERED: HYDROmorphone HCL 2 MG/ML VL IV ONE (20:45)
--- NOTE | 2019-12-29 20:45 | NUR ---
Dr. Su updated on patient status, per doctor Su, clamp NGT, unclamp and resume suction if patient has nausea or vomiting, orders for Gastrografin tomorrow, if no nausea or vomiting plan of care is to remove NGT and advance diet.
--- NOTE | 2019-12-29 21:00 | NUR ---
Pain medication patient resting comfortably in bed, reports pain 10/10 to abd and back, pain medication given per orders. updated patient on plan of care from doctor Georges, patient verbalized understanding.
[2019-12-29 22:00] VITALS: BP 149/95
[2019-12-30] MEDS: HYDROmorphone HCL 2 MG/ML VL IV PRN ×3 (01:01→09:10)
--- NOTE | 2019-12-30 03:45 | NUR ---
Patient requesting breathing treatment patient reports SOB. patient on oxygen at 4L via NC o2 94%, even and unlabored respirations, no s/s of respiratory distress. paged RT.
--- NOTE | 2019-12-30 04:00 | NUR ---
Paged RT for evaluation. Patient requesting breathing treatment. o2 96% on 4L via NC with even and unlabored respirations, lungs sounds clear upon auscultation throughout. repositioned patient up in bed with HOB elevated. no s/s of respiratory distress. patient requesting to speak with nurse discharge. notified nurse discharge Debra. Addendum: 12/30/19 at 0554 by Priti Diaz RN RN patient reports SOB
[2019-12-30] MEDS: ALBUTEROL SULF 2.5 MG/0.5ML(0.5%) NEB SOLN NEB SCH ×5 (04:10→22:06)
--- NOTE | 2019-12-30 04:10 | NUR ---
RT at bedside
[2019-12-30] MEDS: IPRATROPIUM BROM 0.5 MG/2.5ML INH SOL NEB SCH ×5 (04:11→22:06)
[2019-12-30] MEDS: D5W/SOD CHL 0.45%/KCL 20MEQ 1,000 ML IV SCH ×3 (04:57→16:00)
[2019-12-30 05:00] VITALS: BP 141/96
--- NOTE | 2019-12-30 05:20 | NUR ---
area counselor Maria Eugenia at bedside per patient request.
--- NOTE | 2019-12-30 05:35 | NUR ---
ASSUMED PATIENT CARE AT THIS TIME FOR CHANGE IN BED ASSIGNMENT. PATIENT IS RESTING IN BED, EYES CLOSED. NO S/SX OF DISTRESS, SOB OR PAIN. PATIENT IS IN BED, BED IS LOCKED AT LOWEST POSITION, BED RAILS UP X2 AND HEAD OF BED IS UP >30 DEGREES. BEDSIDE TABLE WITHIN REACH, CALL LIGHT WITHIN REACH. BED ALARM ON.
--- NOTE | 2019-12-30 05:35 | NUR ---
Endorsed care to La VILLALOBOS report given.
[2019-12-30 06:26] LABS: Basophils # (auto) 0.1 10 ^3/uL (0-0.2); Eosinophils # (auto) 0.3 10 ^3/uL (0-0.8); Hemoglobin 10.8 g/dL (12.2-16.2); Lymphocytes # (auto) 0.9 10 ^3/uL (0.4-5.4); Mean Corpuscular Hemoglobin 29.2 pg (28.0-32.0); Mean Corpuscular Hgb Conc. 32.7 g/dL (32.0-36.0); Monocytes # (auto) 1.1 10 ^3/uL (0-1.3); Neutrophils # (auto) 3.9 10 ^3/uL (1.6-8.6); White Blood Cell 6.3 10^3/uL (4.4-10.8)
[2019-12-30 06:29] LABS: Basophils % (auto) 1.8 % (0.0-2.0); Eosinophils % (auto) 4.6 % (0.0-7.0); Hematocrit 32.9 % (36.0-46.0); Mean Corpuscular Volume 89.1 fL (80.0-100.0); Monocytes % (auto) 17.1 % (0.0-12.0); Neutrophils % (auto) 62.5 % (37.0-80.0); Platelet Count (auto) 453 10^3/uL (140-450); Red Blood Cells 3.69 10^6/uL (4.0-5.20); Red Cell Distribution Width 15.5 % (11.8-14.3)
--- NOTE | 2019-12-30 06:30 | NUR ---
ROUNDS PATIENT IS RESTING EYES CLOSED. BREATHS ARE EVEN AND UNLABORED. NO S/SX OF DISTRESS, SOB OR PAIN.
[2019-12-30 06:45] LABS: Calcium 8.9 mg/dL (8.5-10.1); Potassium 4.1 mmol/L (3.5-5.1)
--- NOTE | 2019-12-30 07:30 | NUR ---
Opening Shift Note Assumed care of patient, who is alert and oriented x4. No S/S of distress/SOB or pain. Respirations are even and unlabored. NG to R nare intact and currently clamped. Noted green drainage with some particles to canister. Bowel sounds present upon auscultation. PIV to left forearm is patent and intact. Bed is low, locked with 2 side rails up. Call light is within reach. Instructed on POC and to call for assist PRN, will continue to monitor for changes Q1hr and PRN.
[2019-12-30 09:00] VITALS: BP 155/102
[2019-12-30] MEDS ORDERED: GASTROGRAFIN 120 ML SOL ONE (09:10)
--- NOTE | 2019-12-30 09:30 | NUR ---
Pain Patient reporting 10/10 pain on adult pain scale. Per patient report pain is to mid/lower back. Medicated patient per MD order. Patient was off unit during time to re-assess pain. Will continue to monitor.
[2019-12-30] MEDS: BUDESONIDE (INHALATION) 0.5 MG/2 ML NEB NEB SCH ×2 (10:52→18:12)
[2019-12-30] MEDS: FAMOTIDINE (10MG/ML) 2ML VL IV SCH ×2 (11:13→22:23)
[2019-12-30 11:24] LABS: Cholesterol 205 mg/dL (< 200)
[2019-12-30 11:27] LABS: HDL Cholesterol 56 mg/dL (40-59); LDL Cholesterol 131 mg/dL (< 100); Triglycerides 113 mg/dL (< 150)
--- NOTE | 2019-12-30 11:50 | NUR ---
Dr. Jonas Rounding Dr. Jonas at bedside. Updated patient on POC. Per MD this nurse is to D/C pain medication. MD explained to patient that narcotics can worsen constipation. Also per MD this nurse is to advance diet to clear liquid. Orders received/carried out.
[2019-12-30 13:00] VITALS: BP 143/104
[2019-12-30] MEDS ORDERED: hydrALAZINE HCL 20 MG/ML VL IV ONE (13:30)
--- NOTE | 2019-12-30 13:35 | NUR ---
Dr. Su Per Dr. Su, he is signing off on case, discontinue NG tube and advance diet as tolerated. Will carry out orders.
[2019-12-30] MEDS: HYDROcodone-ACET 5/325MG TAB PO PRN (14:02)
[2019-12-30] MEDS: LORazepam 2MG/ML-1ML VIAL IV PRN (15:10)
--- NOTE | 2019-12-30 15:43 | NUR ---
PO pain medication Patient requested pain medication. Ordered pain medication is [place] 5/325 PO. Patient wanted the pill cut in half. Patient swallowed half of pill and stated that she felt like it was stuck in her throat. This nurse sat patient up, gave patient sips of water, attempted to suction pill out with no success. Patient was provided more water, jello and is swallowing both with no difficulty/choking. Patient still reported discomfort to throat. Advised patient that her throat may be scratched from the pill. Dr. Pyle saw patient to ensure that patient is not choking on pill. Patient currently resting with eyes closed. HR:122 O2 SATS: 94 ON 4 L O2 Via nasal cannula. Per Dr. Pyle, keep patient NPO. Will continue to monitor.
--- NOTE | 2019-12-30 16:00 | NUR ---
Abdominal Binder Patient requesting to take abdominal binder off. Patient stated she could not breathe and wanted if off now. This nurse educated patient on need for abdominal binder and patient continued to refuse. Will continue to monitor.
--- NOTE | 2019-12-30 16:35 | NUR ---
Nutrition Assessment Notes Please refer to link for full assessment notes. Est energy needs: 2488-7112 kcals (23-25 kcal/kgBW) Est protein needs: 76-84 gms/day (1.0-1.1 gm/kgBW) Will continue to monitor and reassess prn. Addendum: 12/30/19 at [address] Amended: Links added.
[2019-12-30 17:00] VITALS: BP 109/73
--- NOTE | 2019-12-30 18:10 | NUR ---
RT NOTE PT WAS SEEN BY RT FOR HHN TX. PT TOLERATES WELL VIA MASK. NO ADVERSE REACTION NOTED. PT SLEPT THROUGH TX AT THIS TIME. CONT ORDERED Addendum: 12/30/19 at 1834 by Misa Brown RT Amended: Links added.
--- NOTE | 2019-12-30 18:35 | NUR ---
Rounds Patient resting with eyes closed. No S/S of distress noted. On 4L O2 via nasal cannula. Will continue to monitor.
[2019-12-30 18:37] VITALS: BP 109/73
--- NOTE | 2019-12-30 19:49 | NUR ---
Opening Shift Note Assumed care of patient, sleeping at this time. No S/S of distress/SOB or pain. Will continue to monitor for changes Q1hr and PRN.
--- NOTE | 2019-12-30 22:00 | NUR ---
RT NOTE PT WAS SEEN BY RT FOR HHN TX. HHN GIVEN AT THIS TIME WITHOUT ADVERSE REACTION NOTED. CONT ORDERED Addendum: 12/31/19 at 0011 by Misa Brown RT Amended: Links added.
[2019-12-30 22:30] VITALS: BP 120/80
[2019-12-31] MEDS: LORazepam 2MG/ML-1ML VIAL IV PRN ×4 (04:13→23:45)
[2019-12-31] MEDS: HYDROcodone-ACET 5/325MG TAB PO PRN ×5 (04:57→23:32)
[2019-12-31 05:20] VITALS: BP 133/94
[2019-12-31] MEDS: D5W/SOD CHL 0.45%/KCL 20MEQ 1,000 ML IV SCH ×2 (05:39→18:23)
[2019-12-31] MEDS: IPRATROPIUM BROM 0.5 MG/2.5ML INH SOL NEB SCH ×5 (06:14→22:15)
[2019-12-31] MEDS: ALBUTEROL SULF 2.5 MG/0.5ML(0.5%) NEB SOLN NEB SCH ×5 (06:14→22:15)
[2019-12-31] MEDS: BUDESONIDE (INHALATION) 0.5 MG/2 ML NEB NEB SCH ×2 (06:14→22:15)
[2019-12-31 08:00] VITALS: BP 121/74
[2019-12-31 08:53] VITALS: BP 121/74
[2019-12-31] MEDS: FAMOTIDINE (10MG/ML) 2ML VL IV SCH ×2 (11:10→22:01)
[2019-12-31 13:00] VITALS: BP 130/80
[2019-12-31 16:50] VITALS: BP 132/88
--- NOTE | 2019-12-31 19:50 | NUR ---
Opening Shift Note Assumed care of patient, awake and alert. No S/S of distress/SOB, pt recently medicated for pain. Instructed on POC and to call for assist PRN, will continue to monitor for changes Q1hr and PRN.
[2019-12-31] MEDS: ATORVASTATIN 20 MG TAB PO SCH (22:01)
[2019-12-31 22:07] VITALS: BP 128/78
--- NOTE | 2019-12-31 23:22 | NUR ---
Pain Management Pt medicated for c/o abdomen/generalized pain. Will continue to monitor
[2020-01-01] MEDS: NITROGLYCERIN 0.4 MG SL TAB SL PRN ×2 (02:51→03:09)
--- NOTE | 2020-01-01 02:51 | NUR ---
Nitro administered for c/o chest pain radiates to back, pt on 3L NC, no nausea. Will continue to monitor
--- NOTE | 2020-01-01 03:00 | NUR ---
returned call Hospitalist Gael returned call, updated on patient status and reason for call, ekg changes, for c/o chest pain unrelieved by nitro, ordered troponin lab. Continue care.
--- NOTE | 2020-01-01 03:07 | NUR ---
Pain Management Pt medicated for c/o 05/30 chest pain unrelieved by nitro after using bedpan, will continue to monitor
--- NOTE | 2020-01-01 03:15 | NUR ---
Lab at bedside
--- NOTE | 2020-01-01 03:22 | NUR ---
Rounds Patient awake and alert x4. Pt denies pain, chest pain relieved 0/10 pain. No S/S of distress/SOB or pain. Will continue to monitor changes q1hr and PRN.
[2020-01-01 03:42] LABS: Basophils # (auto) 0.1 10 ^3/uL (0-0.2); Eosinophils # (auto) 0.4 10 ^3/uL (0-0.8); Eosinophils % (auto) 5.4 % (0.0-7.0); Hemoglobin 10.4 g/dL (12.2-16.2); Lymphocytes # (auto) 1.8 10 ^3/uL (0.4-5.4); Monocytes # (auto) 0.9 10 ^3/uL (0-1.3); Neutrophils # (auto) 3.6 10 ^3/uL (1.6-8.6)
[2020-01-01 03:43] LABS: Basophils % (auto) 0.8 % (0.0-2.0); Hematocrit 32.3 % (36.0-46.0); Lymphocytes % (auto) 27.2 % (10.0-50.0); Mean Corpuscular Hemoglobin 28.5 pg (28.0-32.0); Mean Corpuscular Hgb Conc. 32.4 g/dL (32.0-36.0); Mean Corpuscular Volume 88.2 fL (80.0-100.0); Monocytes % (auto) 13.4 % (0.0-12.0); Neutrophils % (auto) 53.2 % (37.0-80.0); Nucleated Red Blood Cells % 0.1 %; Platelet Count (auto) 507 10^3/uL (140-450); Red Blood Cells 3.66 10^6/uL (4.0-5.20); Red Cell Distribution Width 15.7 % (11.8-14.3); White Blood Cell 6.7 10^3/uL (4.4-10.8)
[2020-01-01] MEDS: HYDROcodone-ACET 5/325MG TAB PO PRN ×4 (03:56→20:33)
[2020-01-01 04:04] LABS: Anion Gap 3 (5-15); BUN/Creatinine Ratio 15.4; Blood Urea Nitrogen 8 mg/dL (7-18); Calcium 8.8 mg/dL (8.5-10.1); Carbon Dioxide 30 mmol/L (21-32); Chloride 105 mmol/L (98-107); GFR African American 153 mL/min; GFR Non-African American 126 mL/min; Glucose 101 mg/dL (74-106); Magnesium 1.4 mg/dL (1.6-2.6); Potassium 3.9 mmol/L (3.5-5.1); Sodium 138 mmol/L (136-145)
[2020-01-01 05:24] VITALS: BP 123/85
[2020-01-01] MEDS: LORazepam 2MG/ML-1ML VIAL IV PRN ×3 (05:45→18:00)
[2020-01-01] MEDS: D5W/SOD CHL 0.45%/KCL 20MEQ 1,000 ML IV SCH ×2 (05:52→20:31)
[2020-01-01] MEDS: IPRATROPIUM BROM 0.5 MG/2.5ML INH SOL NEB SCH ×5 (06:31→22:15)
[2020-01-01] MEDS: ALBUTEROL SULF 2.5 MG/0.5ML(0.5%) NEB SOLN NEB SCH ×5 (06:31→22:15)
--- NOTE | 2020-01-01 08:23 | NUR ---
SWALLOW EVALUATED. PATIENT HAS PAIN WHEN SWALLOWING PUREE TRIAL. RECOMMEND CONTINUED FULL LIQUID DIET. PATIENT HAS OWN TEETH. NURSING NOTIFIED.
[2020-01-01 09:00] VITALS: BP 116/79
[2020-01-01] MEDS: FAMOTIDINE (10MG/ML) 2ML VL IV SCH ×2 (09:15→23:02)
--- NOTE | 2020-01-01 09:23 | NUR ---
PT Patient refused to be OOB during morning PT visit and stated she just took pain medication. Addendum: 01/01/20 at 0924 by SAM IGLESIAS PTT Amended: Links added.
[2020-01-01] MEDS: BUDESONIDE (INHALATION) 0.5 MG/2 ML NEB NEB SCH ×2 (10:00→22:15)
[2020-01-01 13:00] VITALS: BP 144/91
--- NOTE | 2020-01-01 15:33 | NUR ---
assessment Patient is a 64 year old female who is alert and oriented. Patients cognitive abilities are intact. Prior to admission patient lived home with family and functioned with assistance. Per patient she will return home to her prior living arrangements post discharge and family will transport her home. Patient informed me he son is applying to be her [facility] caregiver. I informed patient that since she has [facility], she can request a caregiver until her son finishes his application. Patient verbalized understanding. Patient informed me she has a fww, cane, wheelchair, and home 02 at 4L. Patient informed me her PCP is Dr Solis. Patient may benefit from home health PT and safety on discharge. I informed patient she has a right to speak to a social media marketing manager regarding all care. I informed patient she has a right to participate in any and all discharge planning. Patient does not have a POA and advanced directive. I have offered patient information on POA and advanced directives. I informed the patient the advantages and benefits of having an Advanced Directive. Patient verbalized understanding and agreed to discharge plan. Addendum: 01/01/20 at 1536 by Elisha LYNN Amended: Links added.
[2020-01-01] MEDS ORDERED: BRIM0.2S17 EACHEYE (16:01)
[2020-01-01] MEDS ORDERED: DORZ2SOL18 EACHEYE (16:01)
[2020-01-01 16:57] VITALS: BP 132/79
[2020-01-01] MEDS: SUCRALFATE 1 GM/10 ML ORAL SUSP PO SCH ×2 (17:41→23:02)
[2020-01-01] MEDS: NYSTATIN (MOUTH-THROAT) 500,000 UNITS/5 ML SUSP MT SCH ×2 (17:41→23:02)
--- NOTE | 2020-01-01 19:36 | NUR ---
Opening Shift Note Received report and assumed care of patient. Patient is awake and alert. No signs or symptoms of distress noted. Instructed patient on plan of care and to call for assistance as needed. Will continue to monitor.
[2020-01-01 21:00] VITALS: BP 132/87
[2020-01-01] MEDS: BRIMONIDINE 0.2% OPTH Soln 5ml EACHEYE SCH (22:00)
[2020-01-01] MEDS: ATORVASTATIN 20 MG TAB PO SCH (23:02)
[2020-01-01] MEDS: MAGNESIUM SULFATE 1GM/100ML 100 ML IV SCH (23:03)
[2020-01-01] MEDS: DORZOLAMIDE HCL 2% OPTH(EYE) SOL 10ML EACHEYE SCH (23:03)
[2020-01-02] MEDS: MAGNESIUM SULFATE 1GM/100ML 100 ML IV SCH ×2 (00:27→01:41)
[2020-01-02 04:30] VITALS: BP 129/87
[2020-01-02 06:01] LABS: Basophils # (auto) 0 10 ^3/uL (0-0.2); Basophils % (auto) 0.9 % (0.0-2.0); Eosinophils # (auto) 0.4 10 ^3/uL (0-0.8); Eosinophils % (auto) 7.6 % (0.0-7.0); Hematocrit 33.9 % (36.0-46.0); Hemoglobin 11.1 g/dL (12.2-16.2); Lymphocytes # (auto) 1.2 10 ^3/uL (0.4-5.4); Lymphocytes % (auto) 21.7 % (10.0-50.0); Mean Corpuscular Hemoglobin 28.8 pg (28.0-32.0); Mean Corpuscular Hgb Conc. 32.7 g/dL (32.0-36.0); Mean Corpuscular Volume 88.3 fL (80.0-100.0); Monocytes # (auto) 0.8 10 ^3/uL (0-1.3); Monocytes % (auto) 14.2 % (0.0-12.0); Neutrophils % (auto) 55.6 % (37.0-80.0); Nucleated Red Blood Cells % 0.1 %; Platelet Count (auto) 473 10^3/uL (140-450); Red Blood Cells 3.84 10^6/uL (4.0-5.20); Red Cell Distribution Width 15.9 % (11.8-14.3); White Blood Cell 5.5 10^3/uL (4.4-10.8)
[2020-01-02] MEDS: ALBUTEROL SULF 2.5 MG/0.5ML(0.5%) NEB SOLN NEB SCH ×5 (06:02→23:42)
[2020-01-02] MEDS: BUDESONIDE (INHALATION) 0.5 MG/2 ML NEB NEB SCH ×2 (06:03→19:17)
[2020-01-02] MEDS: IPRATROPIUM BROM 0.5 MG/2.5ML INH SOL NEB SCH ×5 (06:03→23:42)
[2020-01-02 06:11] LABS: Anion Gap 4 (5-15); Blood Urea Nitrogen 3 mg/dL (7-18); Calcium 8.7 mg/dL (8.5-10.1); Carbon Dioxide 30 mmol/L (21-32); Chloride 107 mmol/L (98-107); Glucose 97 mg/dL (74-106); Magnesium 2.5 mg/dL (1.6-2.6); Potassium 4.1 mmol/L (3.5-5.1); Sodium 141 mmol/L (136-145)
[2020-01-02 06:14] LABS: BUN/Creatinine Ratio 5.9; GFR African American 156 mL/min; GFR Non-African American 129 mL/min
[2020-01-02] MEDS: NYSTATIN (MOUTH-THROAT) 500,000 UNITS/5 ML SUSP MT SCH ×4 (06:19→22:20)
[2020-01-02] MEDS: SUCRALFATE 1 GM/10 ML ORAL SUSP PO SCH ×4 (06:19→22:29)
[2020-01-02] MEDS: HYDROcodone-ACET 5/325MG TAB PO PRN ×4 (06:23→20:59)
[2020-01-02 09:00] VITALS: BP 140/86
--- NOTE | 2020-01-02 09:50 | NUR ---
PT Patient refused to be OOB or do PT during visit and stated she wanted to sleep more and requested from this PTT to comeback later. Addendum: 01/02/20 at 0952 by SAM IGLESIAS PTT Amended: Links added.
[2020-01-02] MEDS: FAMOTIDINE (10MG/ML) 2ML VL IV SCH ×2 (09:56→22:20)
[2020-01-02] MEDS: DORZOLAMIDE HCL 2% OPTH(EYE) SOL 10ML EACHEYE SCH ×2 (09:56→22:20)
[2020-01-02] MEDS: BRIMONIDINE 0.2% OPTH Soln 5ml EACHEYE SCH ×2 (12:10→22:21)
[2020-01-02] MEDS: D5W/SOD CHL 0.45%/KCL 20MEQ 1,000 ML IV SCH (12:16)
[2020-01-02 13:00] VITALS: BP 152/90
--- NOTE | 2020-01-02 15:20 | NUR ---
PT SEEN BY DR. GUALLPA RECEIVED ORDER TO ADVANCE THE DIET TO FULL LIQUID CARDIAC 2 GRAMS FOR DINNER AND PUREED CARDIAC 2 GRAMS FOR BREAKFAST IF PT TOLERATES FULL LIQUID. TO RESUME LATANOPROST EYE DROPS AT HS.
[2020-01-02] MEDS ORDERED: LATA0.0019 EACHEYE (15:32)
[2020-01-02 17:00] VITALS: BP 128/89
[2020-01-02] MEDS: LORazepam 2MG/ML-1ML VIAL IV PRN (19:02)
[2020-01-02 19:54] VITALS: BP 128/89
[2020-01-02 20:00] VITALS: BP 143/95
[2020-01-02] MEDS: LATANOPROST 0.005 % OPTH(EYE) SOL 2.5ML EACHEYE SCH (22:20)
[2020-01-02] MEDS: ATORVASTATIN 20 MG TAB PO SCH (22:21)
[2020-01-02] MEDS ORDERED: guaiFENesin 200 MG/10 ML UD GT ONE (22:45)
[2020-01-02] MEDS: PROMETHAZINE W/CODEINE 5 ML ORAL SYRUP PO PRN (23:27)
[2020-01-03] MEDS: HYDROcodone-ACET 5/325MG TAB PO PRN ×5 (01:00→20:00)
[2020-01-03] MEDS: D5W/SOD CHL 0.45%/KCL 20MEQ 1,000 ML IV SCH ×2 (01:30→13:34)
[2020-01-03] MEDS: LORazepam 2MG/ML-1ML VIAL IV PRN ×3 (01:55→17:30)
[2020-01-03 05:00] VITALS: BP 134/88
[2020-01-03] MEDS: PROMETHAZINE W/CODEINE 5 ML ORAL SYRUP PO PRN ×3 (05:38→21:03)
[2020-01-03] MEDS: IPRATROPIUM BROM 0.5 MG/2.5ML INH SOL NEB SCH ×6 (05:59→21:54)
[2020-01-03] MEDS: ALBUTEROL SULF 2.5 MG/0.5ML(0.5%) NEB SOLN NEB SCH ×6 (05:59→21:54)
[2020-01-03] MEDS: BUDESONIDE (INHALATION) 0.5 MG/2 ML NEB NEB SCH ×2 (05:59→21:54)
[2020-01-03 06:10] LABS: Basophils # (auto) 0.1 10 ^3/uL (0-0.2); Basophils % (auto) 1.5 % (0.0-2.0); Eosinophils # (auto) 0.4 10 ^3/uL (0-0.8); Eosinophils % (auto) 7.9 % (0.0-7.0); Hematocrit 30.8 % (36.0-46.0); Hemoglobin 10.1 g/dL (12.2-16.2); Lymphocytes # (auto) 1.3 10 ^3/uL (0.4-5.4); Lymphocytes % (auto) 24.3 % (10.0-50.0); Mean Corpuscular Hemoglobin 29.3 pg (28.0-32.0); Mean Corpuscular Hgb Conc. 32.9 g/dL (32.0-36.0); Monocytes # (auto) 0.7 10 ^3/uL (0-1.3); Monocytes % (auto) 12.7 % (0.0-12.0); Neutrophils # (auto) 2.8 10 ^3/uL (1.6-8.6); Neutrophils % (auto) 53.6 % (37.0-80.0); Platelet Count (auto) 403 10^3/uL (140-450); Red Blood Cells 3.46 10^6/uL (4.0-5.20); Red Cell Distribution Width 15.8 % (11.8-14.3); White Blood Cell 5.3 10^3/uL (4.4-10.8)
[2020-01-03] MEDS: NYSTATIN (MOUTH-THROAT) 500,000 UNITS/5 ML SUSP MT SCH ×4 (06:16→22:11)
[2020-01-03 06:18] LABS: Albumin 2.1 g/dL (3.4-5.0); Calcium 8.6 mg/dL (8.5-10.1); Potassium 4.3 mmol/L (3.5-5.1)
[2020-01-03 06:23] LABS: BUN/Creatinine Ratio 5.4; Bilirubin, Total 0.2 mg/dL (0.2-1.0); Total Protein 5.5 g/dL (6.4-8.2)
[2020-01-03] MEDS: SUCRALFATE 1 GM/10 ML ORAL SUSP PO SCH ×4 (06:55→22:13)
--- NOTE | 2020-01-03 07:30 | NUR ---
Opening Shift Note Assumed care of patient, awake and alert. No S/S of distress/SOB or pain. Instructed on POC and to call for assist PRN, will continue to monitor for changes Q1hr and PRN. Patient requesting anxiety medication. Explained to patient that her Ativan is due at 08:00. Patient states understanding.
[2020-01-03 09:06] VITALS: BP 142/94
[2020-01-03] MEDS: BRIMONIDINE 0.2% OPTH Soln 5ml EACHEYE SCH ×2 (10:00→21:04)
[2020-01-03] MEDS: DORZOLAMIDE HCL 2% OPTH(EYE) SOL 10ML EACHEYE SCH ×2 (10:00→21:04)
[2020-01-03] MEDS: FAMOTIDINE (10MG/ML) 2ML VL IV SCH ×2 (10:35→22:10)
[2020-01-03 13:00] VITALS: BP 127/81
--- NOTE | 2020-01-03 13:00 | NUR ---
Patient resting quietly. Patient medicated for pain PRN. Will continue to monitor.
[2020-01-03 16:39] VITALS: BP 110/57
--- NOTE | 2020-01-03 17:30 | NUR ---
Dr. Campo in to see patient as hospitalist.
--- NOTE | 2020-01-03 18:23 | NUR ---
Respiratory note: at bedside for med alba soares.
--- NOTE | 2020-01-03 19:20 | NUR ---
Opening Shift Note Received report from Estefany VILLALOBOS. Assumed care of patient, awake and alert. No S/S of distress/SOB or pain. Instructed on POC and to call for assist PRN, will continue to monitor for changes Q1hr and PRN.
[2020-01-03 21:37] VITALS: BP 147/99
[2020-01-03] MEDS: LATANOPROST 0.005 % OPTH(EYE) SOL 2.5ML EACHEYE SCH (22:10)
[2020-01-03] MEDS: ATORVASTATIN 20 MG TAB PO SCH (22:13)
[2020-01-04] VITALS (7 sets, daily range): BP systolic 143–166; BP diastolic 74–94
[2020-01-04] MEDS: HYDROcodone-ACET 5/325MG TAB PO PRN ×6 (00:02→22:25)
[2020-01-04] MEDS: LORazepam 2MG/ML-1ML VIAL IV PRN ×4 (00:57→20:57)
[2020-01-04] MEDS: IPRATROPIUM BROM 0.5 MG/2.5ML INH SOL NEB SCH ×6 (02:17→22:32)
[2020-01-04] MEDS: ALBUTEROL SULF 2.5 MG/0.5ML(0.5%) NEB SOLN NEB SCH ×6 (02:17→22:32)
[2020-01-04] MEDS: D5W/SOD CHL 0.45%/KCL 20MEQ 1,000 ML IV SCH ×2 (03:00→15:48)
[2020-01-04] MEDS: PROMETHAZINE W/CODEINE 5 ML ORAL SYRUP PO PRN (03:02)
--- NOTE | 2020-01-04 04:10 | NUR ---
IV insertion IV access obtained, via clean sterile technique by inserting 22 gauge catheter at L finger after 2 attempt(s). IV secured properly. No trauma to site. Patient tolerated well.
--- NOTE | 2020-01-04 05:16 | NUR ---
Call to dietary, left message re patient wants to speak to dietary about not receiving menu list on her tray.
[2020-01-04] MEDS: NYSTATIN (MOUTH-THROAT) 500,000 UNITS/5 ML SUSP MT SCH ×4 (06:00→22:00)
[2020-01-04 06:13] LABS: Basophils # (auto) 0.1 10 ^3/uL (0-0.2); Basophils % (auto) 1.3 % (0.0-2.0); Eosinophils # (auto) 0.4 10 ^3/uL (0-0.8); Hematocrit 29.9 % (36.0-46.0); Hemoglobin 9.7 g/dL (12.2-16.2); Lymphocytes # (auto) 1.3 10 ^3/uL (0.4-5.4); Lymphocytes % (auto) 24.6 % (10.0-50.0); Mean Corpuscular Hemoglobin 28.5 pg (28.0-32.0); Mean Corpuscular Hgb Conc. 32.3 g/dL (32.0-36.0); Mean Corpuscular Volume 88.2 fL (80.0-100.0); Monocytes # (auto) 0.6 10 ^3/uL (0-1.3); Neutrophils # (auto) 2.9 10 ^3/uL (1.6-8.6); Neutrophils % (auto) 55.1 % (37.0-80.0); Platelet Count (auto) 378 10^3/uL (140-450); Red Blood Cells 3.39 10^6/uL (4.0-5.20); Red Cell Distribution Width 15.8 % (11.8-14.3); White Blood Cell 5.2 10^3/uL (4.4-10.8)
[2020-01-04 06:16] LABS: BUN/Creatinine Ratio 11.1; Calcium 8.7 mg/dL (8.5-10.1); Potassium 4.4 mmol/L (3.5-5.1)
[2020-01-04] MEDS: BUDESONIDE (INHALATION) 0.5 MG/2 ML NEB NEB SCH ×2 (06:20→22:31)
[2020-01-04] MEDS: SUCRALFATE 1 GM/10 ML ORAL SUSP PO SCH ×4 (07:09→21:59)
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
[2020-01-04] MEDS: DORZOLAMIDE HCL 2% OPTH(EYE) SOL 10ML EACHEYE SCH ×2 (09:21→21:59)
[2020-01-04] MEDS: FAMOTIDINE (10MG/ML) 2ML VL IV SCH ×2 (09:21→21:59)
[2020-01-04] MEDS: BRIMONIDINE 0.2% OPTH Soln 5ml EACHEYE SCH ×2 (09:21→22:00)
--- NOTE | 2020-01-04 11:44 | NUR ---
01/03/20 Pt sat at the edge of the bed for approx 10 min. Pt was able to complete exercises for bilat UE's and LE's each exercise completing 10 reps. Pt demo'd av alla and had c/o moderate pain and discomfort to LS spine Addendum: 01/04/20 at 1146 by Corrine Issa PT Amended: Links added.
--- NOTE | 2020-01-04 15:04 | NUR ---
Nutrition Followup Notes Pt wt is 78.5 kg today Pt was awake with no relatives at bedside when rounded this morning. Pt noted no distress. Pt is on a Pureed diet d/t swallowing difficulties. Pt appetite is good aeb 75% x5 PO intake per RN doc. Will monitor and followup prn Est energy needs: 0695-0851 kcals (23-25 kcal/kgBW) Est protein needs: 76-84 gms/day (1.0-1.1 gm/kgBW) Will continue to monitor and reassess prn. LABS: CL 108 H, AST 9 L, ALT 8 L, TOT PRO 5.5 L, ALB 2.1 L GI: Last BM noted on 01/02/20 per RN doc. BS: 20 low risk, Please refer to wound assessment report for full details PES: Problem 1) Increased nutrient needs r/t 0% PO intake aeb Pt NPO status 2)Altered nutrition related lab values r/t current medical condition aeb altered RFTs, hyperglyc, severe hypoalb Comments 1) Continue to closely monitor pt NPO status 2) Gradually advance pt to oral diet when medically feasible as tolerated and per MD approval (Resolved - pt on Pureed diet) 3) Closely monitor pt PO intake to meet at least 75% of meals eaten 4) If albumin continues trending down with improved RFTs, consider Prostat 1 pkt BID 5) Continue current plan of care
--- NOTE | 2020-01-04 16:11 | NUR ---
re-assessment Per consult SNF placement for rehab. Patient agrees to SNF. MD order has been sent to [facility] and [facility]. I forwarded consult to Rizwana BRAY to follow up and satisfy MD order. Addendum: 01/04/20 at 1613 by Elisha Powell Amended: Links added.
--- NOTE | 2020-01-04 16:15 | NUR ---
D/C Planning Per SS consult SNF placement. Per SW II Elisha order was faxed to [facility]. Placed followed up called to [facility] Ph: ). Per Emily with [facility] patient has been accepted and will provide room and following doctor when authorization has been received. Order was faxed to [facility] requesting authorization for [facility]. Pending on authorization. RN was Víctor.
--- NOTE | 2020-01-04 19:40 | NUR ---
Pt c/o right upper arm skin discoloration, no skin open.
--- NOTE | 2020-01-04 19:45 | NUR ---
Opening Shift Note Assumed care of patient, awake and alert. No S/S of distress/SOB. C/O pain and anxiety, instructed on pain med and anxiety med due time. Instructed POC and to call for assist PRN, will continue to monitor for changes Q1hr and PRN.
[2020-01-04] MEDS: ATORVASTATIN 20 MG TAB PO SCH (21:58)
[2020-01-04] MEDS: LATANOPROST 0.005 % OPTH(EYE) SOL 2.5ML EACHEYE SCH (22:00)
[2020-01-05] MEDS: HYDROcodone-ACET 5/325MG TAB PO PRN ×4 (02:36→17:29)
[2020-01-05] MEDS: PROMETHAZINE W/CODEINE 5 ML ORAL SYRUP PO PRN (03:03)
[2020-01-05] MEDS: D5W/SOD CHL 0.45%/KCL 20MEQ 1,000 ML IV SCH (04:46)
[2020-01-05] MEDS: LORazepam 2MG/ML-1ML VIAL IV PRN ×3 (04:55→12:32)
[2020-01-05 05:28] VITALS: BP 144/81
[2020-01-05] MEDS: ALBUTEROL SULF 2.5 MG/0.5ML(0.5%) NEB SOLN NEB SCH ×3 (05:39→13:36)
[2020-01-05] MEDS: IPRATROPIUM BROM 0.5 MG/2.5ML INH SOL NEB SCH ×4 (05:39→13:36)
[2020-01-05 05:43] LABS: Basophils # (auto) 0.1 10 ^3/uL (0-0.2); Basophils % (auto) 1.4 % (0.0-2.0); Eosinophils # (auto) 0.4 10 ^3/uL (0-0.8); Hematocrit 31.3 % (36.0-46.0); Hemoglobin 10.3 g/dL (12.2-16.2); Lymphocytes # (auto) 1.1 10 ^3/uL (0.4-5.4); Lymphocytes % (auto) 21.7 % (10.0-50.0); Mean Corpuscular Hemoglobin 29.4 pg (28.0-32.0); Mean Corpuscular Volume 89.1 fL (80.0-100.0); Monocytes # (auto) 0.5 10 ^3/uL (0-1.3); Monocytes % (auto) 10.1 % (0.0-12.0); Neutrophils # (auto) 3.1 10 ^3/uL (1.6-8.6); Neutrophils % (auto) 59.8 % (37.0-80.0); Nucleated Red Blood Cells % 0.1 %; Platelet Count (auto) 374 10^3/uL (140-450); Red Blood Cells 3.51 10^6/uL (4.0-5.20); Red Cell Distribution Width 16.1 % (11.8-14.3); White Blood Cell 5.3 10^3/uL (4.4-10.8)
[2020-01-05 06:02] LABS: BUN/Creatinine Ratio 12.3; Calcium 8.7 mg/dL (8.5-10.1); Potassium 4.3 mmol/L (3.5-5.1)
--- NOTE | 2020-01-05 06:21 | NUR ---
Notified dietary regarding Pt ordered potato,soft boiled eggs,and hot chockolate. No bread,scrambled eggs or coffee.
[2020-01-05] MEDS: NYSTATIN (MOUTH-THROAT) 500,000 UNITS/5 ML SUSP MT SCH ×2 (06:29→11:06)
[2020-01-05] MEDS: SUCRALFATE 1 GM/10 ML ORAL SUSP PO SCH ×3 (06:29→16:32)
[2020-01-05 08:00] VITALS: BP 123/85
[2020-01-05 09:00] VITALS: BP 123/85
[2020-01-05] MEDS: BUDESONIDE (INHALATION) 0.5 MG/2 ML NEB NEB SCH (09:15)
[2020-01-05] MEDS: DORZOLAMIDE HCL 2% OPTH(EYE) SOL 10ML EACHEYE SCH (09:30)
[2020-01-05] MEDS: FAMOTIDINE (10MG/ML) 2ML VL IV SCH (09:30)
[2020-01-05] MEDS: BRIMONIDINE 0.2% OPTH Soln 5ml EACHEYE SCH (09:30)
[2020-01-05 13:00] VITALS: BP 121/76
[2020-01-05 15:06] VITALS: BP 121/70
--- NOTE | 2020-01-05 15:07 | NUR ---
D/C Planning Received followed up called from Fallon with [facility] providing me with authorization for SNF [id number]. Placed followed up called to [facility], spoke to Dee Dee. Advised Dee Dee patient will be d/c today. Per Dee Dee with [facility] PH: [phone] patient has been accepted to room [address] Clifford. Faxed transportation form request to [facility] requesting for transportation to be arrange at 17:00 via gurney with oxygen. GRISELDA Renee was informed.
--- NOTE | 2020-01-05 18:47 | NUR ---
PATIENT TRANSFERED TO [facility]. ALL IV ACCESS DISCONTINUED. ALL DISCHARGE/TRANSFER PAPERWORK SIGNED. ALL DISCHARGE/TRANSFER INSTRUCTIONS GIVEN.
[2020-01-24] MEDS ORDERED: SUCR1SUS16 PO (18:09)
[2020-01-24] MEDS ORDERED: FAMO20TA10 PO (18:09)
== END 2020-01-05 18:45 | DRG 254 ==
LOC: ER 04:52 → EDBD 04:52 → TELE 04:53 → TELE-WESTW 16:45
PROVIDERS: ADMIT Nurse Practitioner Acute Care; ATTEND Internal Medicine
DX: K43.6 Other and unspecified ventral hernia with obstruction, without gangrene (principal); J96.11 Chronic respiratory failure with hypoxia; E44.0 Moderate protein-calorie malnutrition; E83.42 Hypomagnesemia; I11.0 Hypertensive heart disease with heart failure; M48.54XA Collapsed vertebra, not elsewhere classified, thoracic region, initial encounter for fracture; I50.30 Unspecified diastolic (congestive) heart failure; J44.1 Chronic obstructive pulmonary disease with (acute) exacerbation; Z99.81 Dependence on supplemental oxygen; R13.12 Dysphagia, oropharyngeal phase; E78.5 Hyperlipidemia, unspecified; F31.9 Bipolar disorder, unspecified; K21.9 Gastro-esophageal reflux disease without esophagitis; E87.6 Hypokalemia; D63.8 Anemia in other chronic diseases classified elsewhere; K29.00 Acute gastritis without bleeding; I25.10 Atherosclerotic heart disease of native coronary artery without angina pectoris; G89.4 Chronic pain syndrome; F41.9 Anxiety disorder, unspecified; F17.210 Nicotine dependence, cigarettes, uncomplicated; Z90.49 Acquired absence of other specified parts of digestive tract; I25.2 Old myocardial infarction; Z79.899 Other long term (current) drug therapy; Z90.710 Acquired absence of both cervix and uterus; Z85.118 Personal history of other malignant neoplasm of bronchus and lung; Z83.3 Family history of diabetes mellitus; Z82.0 Family history of epilepsy and other diseases of the nervous system; Z80.8 Family history of malignant neoplasm of other organs or systems
CPT/HCPCS: 36415; 71045; 74018; 74177; 74250; 80048; 80053; 80061; 80307; 81001; 83036; 83690; 83735; 83880; 84443; 84484; 85025; 85379; 85610; 85730; 92610; 93005; 93306; 93970; 94640; 96361; 96365; 96375; 97110; 97116; 97163; 97530; G0378; J2001; J2405; J3490

== ENCOUNTER 2020-01-24 11:33 | Inpatient (IN) | payer MEDICAID ==
[~2020-01-24] VITALS: Ht 165.1 cm; Wt 74.5 kg
[~2020-01-24 11:33] MED LIST changes: -AML5T PO; -BACL10TA PO; +BRIM0.2S17 EACHEYE; -BUPR200T PO; -BUSP5TAB51 PO; -CALC600T80 PO; -CARB25TA22 PO; -CLON0.5T3 PO; +DORZ2SOL18 EACHEYE; -DULO60CA PO; -GABA300C10 PO; -HYDR2TAB58 PO; +LATA0.0019 EACHEYE; -LORA-622 PO; -MET25T PO; -OMEP20TA PO; -PERCOT PO; -PRED1PAK9 PO; -PRED20TA2 PO; -PROM25TA5 PO; -SACC250C PO; -SENN1TAB14 PO; -TRAZ50TA2 PO
[2020-01-24 12:11] LABS: Basophils # (auto) 0 10 ^3/uL (0-0.2); Basophils % (auto) 0.5 % (0.0-2.0); Eosinophils # (auto) 0.5 10 ^3/uL (0-0.8); Eosinophils % (auto) 11.6 % (0.0-7.0); Hematocrit 32.3 % (36.0-46.0); Hemoglobin 10.5 g/dL (12.2-16.2); Lymphocytes % (auto) 22.7 % (10.0-50.0); Mean Corpuscular Hemoglobin 28.9 pg (28.0-32.0); Mean Corpuscular Hgb Conc. 32.4 g/dL (32.0-36.0); Mean Corpuscular Volume 89.4 fL (80.0-100.0); Monocytes # (auto) 0.5 10 ^3/uL (0-1.3); Monocytes % (auto) 12.3 % (0.0-12.0); Neutrophils # (auto) 2.3 10 ^3/uL (1.6-8.6); Neutrophils % (auto) 52.9 % (37.0-80.0); Nucleated Red Blood Cells % 0.1 %; Platelet Count (auto) 364 10^3/uL (140-450); Red Blood Cells 3.61 10^6/uL (4.0-5.20); Red Cell Distribution Width 14.9 % (11.8-14.3); White Blood Cell 4.3 10^3/uL (4.4-10.8)
[2020-01-24 12:31] LABS: Albumin 2.9 g/dL (3.4-5.0); Anion Gap 5 (5-15); Blood Urea Nitrogen 6 mg/dL (7-18); Calcium 9.6 mg/dL (8.5-10.1); Carbon Dioxide 35 mmol/L (21-32); Chloride 99 mmol/L (98-107); Glucose 90 mg/dL (74-106); Potassium 3.6 mmol/L (3.5-5.1); Sodium 139 mmol/L (136-145)
[2020-01-24 12:36] LABS: Alanine Aminotransferase 6 U/L (13-56); Alkaline Phosphatase 78 U/L (45-117); Aspartate Aminotransferase 13 U/L (15-37); BUN/Creatinine Ratio 10.5; Bilirubin, Total 0.3 mg/dL (0.2-1.0); GFR African American 137 mL/min; GFR Non-African American 113 mL/min; INR 1.02 (0.9-1.15); Partial Thromboplastin Time 28.1 sec (23.64-32.05)
[2020-01-24] MEDS ORDERED: IPRATROPIUM BROM 0.5 MG/2.5ML INH SOL HHN ONE (12:45)
[2020-01-24] MEDS ORDERED: ALBUTEROL SULF 2.5 MG/0.5ML(0.5%) NEB SOLN HHN ONE (12:45)
[2020-01-24] MEDS ORDERED: methylPREDNISolone SOD SUCC 125 MG/2 ML VL IV ONE (12:45)
[2020-01-24] MEDS ORDERED: AZITHROMYCIN 500MG/ 250ML 250 ML IV ONE (13:30)
[2020-01-24] MEDS ORDERED: MEPERIDINE HCL (25 MG/ML) 1ML VIAL IV ONE (15:00)
[2020-01-24] MEDS ORDERED: ONDANSETRON HCL 4 MG/2 ML VIAL IV ONE (15:00)
[2020-01-24] MEDS ORDERED: NITROGLYCERIN 0.4 MG SL TAB SL PRN (15:15)
[2020-01-24] MEDS ORDERED: ONDANSETRON HCL 4 MG/2 ML VIAL IV PRN (15:15)
[2020-01-24] MEDS ORDERED: MEPERIDINE HCL (25 MG/ML) 1ML VIAL IV PRN (15:15)
[2020-01-24] MEDS ORDERED: ACETAMINOPHEN 500 MG TAB PO PRN (15:15)
[2020-01-24] MEDS: cefTRIAXone 1GM/50ML D5W 50 ML IV SCH (15:43)
[2020-01-24] MEDS: HYDROcodone-ACET 5/325MG TAB PO PRN (15:44)
--- NOTE | 2020-01-24 17:43 | NUR ---
Telemetry admit from ER: ERNA KAUFFMAN admitted to Telemetry unit after NO SBAR OR REPORT received. Patient oriented to PHYLLIS UMAÑA, RN primary RN, unit, room, bed, and unit policies regarding patient care and visiting hours. Patient now on continuous telemetry monitoring, tele box # 5 and telemetry reading on arrival to unit is SINUS TACH 102. Patient placed on bedside oxygen 4 LPM, weighed by bedscale and encouraged to call if they need something. All questions and concerns addressed, patient verbalized understanding.
[2020-01-24 18:03] VITALS: BP 109/68
[2020-01-24] MEDS ORDERED: PROM2SYP2 PO (18:09)
[2020-01-24] MEDS ORDERED: ONDA-144 PO (18:09)
[2020-01-24] MEDS ORDERED: BUSP10TA90 PO (18:09)
[2020-01-24] MEDS ORDERED: IBUP400T21 PO (18:09)
[2020-01-24] MEDS ORDERED: TIOTCAP IN (18:09)
[2020-01-24] MEDS ORDERED: IPRAAER6 INH (18:09)
[2020-01-24] MEDS ORDERED: TRAZ100T3 PO (18:09)
[2020-01-24] MEDS ORDERED: SUCR1SUS8 PO (18:09)
[2020-01-24] MEDS ORDERED: ATOR20TA PO (18:09)
[2020-01-24] MEDS ORDERED: POTA1TAB61 PO (18:09)
[2020-01-24] MEDS ORDERED: DULO60CA PO (18:09)
[2020-01-24] MEDS ORDERED: HYDR-531 PO (18:09)
[2020-01-24] MEDS ORDERED: FAM20T PO (18:09)
[2020-01-24] MEDS ORDERED: LOSA-69 PO (18:09)
[2020-01-24] MEDS ORDERED: GABA300C10 PO (18:09)
[2020-01-24] MEDS ORDERED: LORA-655 PO (18:09)
[2020-01-24] MEDS ORDERED: CARB25TA22 PO (18:09)
[2020-01-24] MEDS ORDERED: HYDROmorphone HCL 2 MG/ML VL IV ONE (18:15)
--- NOTE | 2020-01-24 18:18 | NUR ---
PAIN Patient states pain 10/10. Per patient "pain all over". Patient does not have appropriate pain medications per stated pain level. Hospitalist laboratory monitor paged. GAYE Bryan called back. New orders received. Read back and verified.
--- NOTE | 2020-01-24 18:39 | NUR ---
MRSA swab collected and sent.
--- NOTE | 2020-01-24 18:50 | NUR ---
PAIN Patient states pain level 10/10 "Every where". Appropriate pain medications given. Will continue to monitor.
--- NOTE | 2020-01-24 19:13 | NUR ---
CLOSING NOTE: Patient resting in bed. No S/S of distress at this time. Care endorsed to NOC RN.
--- NOTE | 2020-01-24 19:25 | NUR ---
Opening Shift Note Assumed care of patient, awake and alert. No S/S of distress/SOB or pain. Safety measures in place bed in lowest position, side rails x2 up, and call light within reach. Instructed on POC and to call for assist PRN, will continue to monitor for changes Q1hr and PRN.
[2020-01-24] MEDS: ALBUTEROL SULF 2.5 MG/0.5ML(0.5%) NEB SOLN NEB SCH (19:31)
[2020-01-24] MEDS: IPRATROPIUM BROM 0.5 MG/2.5ML INH SOL NEB SCH (19:31)
[2020-01-24] MEDS: BUDESONIDE (INHALATION) 0.5 MG/2 ML NEB NEB SCH (19:32)
[2020-01-24] MEDS ORDERED: MORPHINE SULF INJ 2 MG/ML SYRINGE 1ML IV PRN (20:45)
--- NOTE | 2020-01-24 21:41 | NUR ---
Patient asked to speak to the nurse. Entered the room patient lying in bed free of signs of pain or distress. Patient complaining of pain 10/10, when asked where patient states "It's all over", when asked to describe pain patient was unable to describe. Told patient I would collect her pain medication; patient inquired which medication she would be receiving informed patient it is morphine. Patient states she recently developed an allergy to morphine and is unable to take it. Patient requesting dilaudid. Patient states she does not want any other pain medication but dilaudid and she will wait for an order. Will notify hospitalist.
[2020-01-24 22:00] VITALS: BP 104/65
--- NOTE | 2020-01-24 22:15 | NUR ---
Hospitalist returned my paged. Received orders from Dr. Sigala.
[2020-01-24] MEDS: methylPREDNISolone SOD SUCC 125 MG/2 ML VL IV SCH (22:41)
[2020-01-24] MEDS: LATANOPROST 0.005 % OPTH(EYE) SOL 2.5ML EACHEYE SCH (22:41)
[2020-01-24] MEDS: BRIMONIDINE 0.2% OPTH Soln 5ml EACHEYE SCH (22:42)
[2020-01-24] MEDS: HYDROmorphone HCL 2 MG/ML VL IV PRN (22:43)
--- NOTE | 2020-01-24 22:43 | NUR ---
Pain medication verified by pharmacy. Patient states pain is 10/10, medication administered. Upon administration patient states she is feeling relief in pain. Will reassess in 30 minutes.
--- NOTE | 2020-01-24 23:13 | NUR ---
Pain reassessment Pain reassessed. Patient is sleeping with eyes closed; free of any signs or symptoms of pain or distress. Will continue to monitor every hour and as needed.
[2020-01-25] MEDS: ALBUTEROL SULF 2.5 MG/0.5ML(0.5%) NEB SOLN NEB SCH ×4 (00:20→18:11)
[2020-01-25] MEDS: IPRATROPIUM BROM 0.5 MG/2.5ML INH SOL NEB SCH ×4 (00:20→18:11)
[2020-01-25 02:55] VITALS: BP 104/65
[2020-01-25] MEDS: HYDROcodone-ACET 5/325MG TAB PO PRN ×2 (03:25→18:01)
--- NOTE | 2020-01-25 03:25 | NUR ---
Patient complaining of 8/10 pain. Patient states pain is "all over", and patient is unable to describe the pain. Dilaudid is unavailable. Patient requesting Otto for pain. Medication administered, will reassess in one hour.
--- NOTE | 2020-01-25 04:25 | NUR ---
Patient pain reassessed. Patient states pain is 10/10. Patient states "[place] did not help my pain, it made my pain worse". Notified patient Dilaudid is not available yet. Patient offered hot packs, patient refused. Patient states "I will wait for my dilaudid".
[2020-01-25 05:00] VITALS: BP 113/81
[2020-01-25] MEDS: HYDROmorphone HCL 2 MG/ML VL IV PRN ×3 (05:39→19:17)
--- NOTE | 2020-01-25 05:39 | NUR ---
Patient states pain is 10/10. Dilaudid administered, patient stated "Finally relief, I feel it washing over me". Will continue to monitor, and will reassess in 30 minutes.
[2020-01-25 05:55] LABS: Basophils # (auto) 0 10 ^3/uL (0-0.2); Basophils % (auto) 0.6 % (0.0-2.0); Eosinophils # (auto) 0 10 ^3/uL (0-0.8); Hemoglobin 10.8 g/dL (12.2-16.2); Lymphocytes # (auto) 0.4 10 ^3/uL (0.4-5.4); Lymphocytes % (auto) 13.9 % (10.0-50.0); Mean Corpuscular Hemoglobin 28.7 pg (28.0-32.0); Mean Corpuscular Hgb Conc. 32.8 g/dL (32.0-36.0); Mean Corpuscular Volume 87.5 fL (80.0-100.0); Monocytes # (auto) 0 10 ^3/uL (0-1.3); Monocytes % (auto) 1.2 % (0.0-12.0); Neutrophils # (auto) 2.7 10 ^3/uL (1.6-8.6); Neutrophils % (auto) 84.3 % (37.0-80.0); Platelet Count (auto) 383 10^3/uL (140-450); Red Blood Cells 3.77 10^6/uL (4.0-5.20); Red Cell Distribution Width 14.8 % (11.8-14.3); White Blood Cell 3.2 10^3/uL (4.4-10.8)
--- NOTE | 2020-01-25 06:09 | NUR ---
Pain reassessment. Patient is lying in bed with eyes closed. No signs or symptoms of distress noted.
[2020-01-25 06:19] LABS: Chloride 97 mmol/L (98-107); Potassium 3.9 mmol/L (3.5-5.1); Sodium 138 mmol/L (136-145)
[2020-01-25 06:31] LABS: Anion Gap 8 (5-15); BUN/Creatinine Ratio 27.9; Blood Urea Nitrogen 17 mg/dL (7-18); Calcium 9.7 mg/dL (8.5-10.1); Carbon Dioxide 33 mmol/L (21-32); GFR African American 127 mL/min; GFR Non-African American 105 mL/min; Glucose 140 mg/dL (74-106)
--- NOTE | 2020-01-25 07:00 | NUR ---
Opening Shift Note received report on the patient. Awake lying in bed. Patient shows no signs of distress at this time. Discussed the plan of care with the patient. Bed in lowest position, side rails up x2, and the call light is within reach. Will continue to monitor.
[2020-01-25 09:00] VITALS: BP 129/84
[2020-01-25] MEDS: cefTRIAXone 1GM/50ML D5W 50 ML IV SCH (10:45)
[2020-01-25] MEDS: BRIMONIDINE 0.2% OPTH Soln 5ml EACHEYE SCH ×2 (10:45→21:34)
[2020-01-25] MEDS: FAMOTIDINE 20 MG TAB PO SCH (10:46)
[2020-01-25] MEDS: methylPREDNISolone SOD SUCC 125 MG/2 ML VL IV SCH ×2 (10:46→21:35)
[2020-01-25] MEDS: FUROSEMIDE 20 MG TAB PO SCH (10:46)
[2020-01-25] MEDS: BUDESONIDE (INHALATION) 0.5 MG/2 ML NEB NEB SCH ×2 (11:10→18:11)
--- NOTE | 2020-01-25 11:30 | NUR ---
MD Dr Jonas at bedside.
[2020-01-25 11:34] LABS: CRP High Sensitivity 2.03 mg/dL (< 0.3)
--- NOTE | 2020-01-25 12:26 | NUR ---
Gravel Machine Operator Called [facility] and left a message regarding home health, transportation, and a safety eval.
[2020-01-25] MEDS: AZITHROMYCIN 500MG/ 250ML 250 ML IV SCH (12:29)
[2020-01-25 13:00] VITALS: BP 133/90
--- NOTE | 2020-01-25 13:30 | NUR ---
Family Called the patient's son regarding her discharge. He said he would be able to come and pick her up when she was ready.
[2020-01-25 13:36] LABS: Urine WBC None Seen /hpf (0 - 5)
[2020-01-25 13:45] LABS: Urine Bacteria NONE SEEN /hpf (None Seen); Urine Blood Negative /uL (Negative); Urine Mucus FEW (None Seen); Urine Specific Gravity 1.007 (1.001-1.035)
[2020-01-25 14:23] VITALS: BP 133/90
--- NOTE | 2020-01-25 14:58 | NUR ---
D/C Planning Per Social Service consult for home health safety evaluation. Faxed clinical information to [facility]. Per Katina with [facility] Ph:( [phone]) patient has been accepted and service to start within 24-48hrs upon d/c day. Faxed clinical information to [facility] requesting authorization for [facility]. Celestine Orellana with [facility] authorization for home health is [id number]. Addendum: 01/25/20 at 1501 by DIVINE LYNN Amended: Links added.
--- NOTE | 2020-01-25 15:49 | NUR ---
D/C Planning Placed adoption social worker consult for hospice per Rizwana since the patient was on hospice before this hospital visit.
--- NOTE | 2020-01-25 16:27 | NUR ---
PT chester requested per Rizwana.
--- NOTE | 2020-01-25 18:01 | NUR ---
Hydroelectric Station Operator Chief Patient lives alone and cannot take care of herself. The patient's grandson and son have both stated that she cannot come to live with them. I informed Dr. Jonas and put in a oncology social work consult for D/C planning. D/C held until we can place the patient somewhere.
--- NOTE | 2020-01-25 19:07 | NUR ---
OPENING NOTE Received report from day shift RN. Patient is A&O X's 4 with no s/s of respiratory distress. Patient is currently sitting up in bed and eating dinner. Patient is complaining of generalized body pain rating at a 10. Educated patient on pain medication and pain management. Educated patient on POC and to use call light when in need of assistance. Patient verbalized understanding. Will provide pain medication as ordered. Bed is in lowest/locked position with side rails up X's 2 and call light is within reach of patient. HOB remains elevated. Will continue care.
--- NOTE | 2020-01-25 19:07 | NUR ---
PAIN REASSESSMENT Patient complaining of generalized body pain rated at a 10. Will medicate as ordered. Will continue care.
--- NOTE | 2020-01-25 20:38 | NUR ---
NURSING NOTE Provided clean linen at this time for patient and provided grayson care. Patient tolerated well. Will continue care.
[2020-01-25] MEDS: LATANOPROST 0.005 % OPTH(EYE) SOL 2.5ML EACHEYE SCH (21:34)
[2020-01-25] MEDS: ATORVASTATIN 20 MG TAB PO SCH (21:34)
[2020-01-25 22:00] VITALS: BP 124/81
--- NOTE | 2020-01-25 22:59 | NUR ---
PATIENT TRANSFERRED TO ROOM 214B Patient moved from room 245A to room 214B safely. New tele box provided to patient. Tele #[id number]. Patient receiving 4L O2 via [place]. Bed is in lowest/locked position with side rails up X's 2 and call light is within reach of patient. Bed alarm is on. Will continue care.
[2020-01-26] MEDS: HYDROmorphone HCL 2 MG/ML VL IV PRN ×4 (01:18→19:48)
--- NOTE | 2020-01-26 01:47 | NUR ---
PAIN REASSESSMENT Patient reports pain is still currently at a 8. Repositioned patient for comfort. Will continue care.
--- NOTE | 2020-01-26 01:50 | NUR ---
MEDICATED FOR PAIN, PATIENT GOT UP TO BED SIDE COMMODE, TOLERATED WELL.
[2020-01-26 05:00] VITALS: BP 132/93
[2020-01-26] MEDS: IPRATROPIUM BROM 0.5 MG/2.5ML INH SOL NEB SCH ×3 (06:48→18:50)
[2020-01-26] MEDS: ALBUTEROL SULF 2.5 MG/0.5ML(0.5%) NEB SOLN NEB SCH ×3 (06:50→18:50)
--- NOTE | 2020-01-26 07:00 | NUR ---
Opening Shift Note Received report on the patient. Awake lying in bed. Patient shows no signs of distress at this time. Discussed the plan of care with the patient. Bed in lowest position, side rails up x2, and the call light is within reach. Will continue to monitor.
--- NOTE | 2020-01-26 08:38 | NUR ---
PT called the PT to follow up on the PT chester. Will continue to follow up.
[2020-01-26 09:00] VITALS: BP 138/89
[2020-01-26] MEDS: methylPREDNISolone SOD SUCC 125 MG/2 ML VL IV SCH ×2 (09:35→21:57)
[2020-01-26] MEDS: cefTRIAXone 1GM/50ML D5W 50 ML IV SCH (09:35)
[2020-01-26] MEDS: BRIMONIDINE 0.2% OPTH Soln 5ml EACHEYE SCH ×2 (09:35→21:58)
--- NOTE | 2020-01-26 10:17 | NUR ---
Metal Leaf Layer Called and left a message for [facility] to follow up on hospice planning
--- NOTE | 2020-01-26 10:44 | NUR ---
MD Dr Jonas at bedside
[2020-01-26] MEDS: FUROSEMIDE 20 MG TAB PO SCH (11:07)
[2020-01-26] MEDS: FAMOTIDINE 20 MG TAB PO SCH (11:07)
[2020-01-26] MEDS: AZITHROMYCIN 500MG/ 250ML 250 ML IV SCH (11:25)
[2020-01-26] MEDS: BUDESONIDE (INHALATION) 0.5 MG/2 ML NEB NEB SCH ×2 (11:30→18:50)
[2020-01-26 13:00] VITALS: BP 149/96
--- NOTE | 2020-01-26 13:31 | NUR ---
Assessment Patient is a 64-year-old female who is alert and oriented. Prior to admission patient came from [facility]. Per patient she does not feel safe going home and she would like to be place at a facility [facility] [place] [facility] or with Hospices, Patient informed me she receives [facility] with an amount of 1100 and [facility] service however, her caregiver does not go as often as she should. Patient informed me she has a fww, cane, wheelchair, and home oxygen. Advised patient there is two Social Service consult one for home health safety evaluation and the second one for Hospice. Informed patient her health plan is providing three different options which are going home with home health/ [facility], go to a facility [facility] [place] [facility] or hospice. Per Fallon with [facility] advised for a physical therapy evaluation to be complete to see if possible she can qualify for rehab. Informed nurse regarding physical therapy evaluation. I informed patient she has a right to speak to a social group worker regarding all care. I informed patient she has a right to participate in all discharge planning. Patient verbalized understanding and agreed to discharge plan. Addendum: 01/26/20 at 1337 by DIVINE LYNN Amended: Links added.
--- NOTE | 2020-01-26 13:40 | NUR ---
D/C Planning Per SW II doctor informed her patient agrees to go under hospice with placement. Followed up with patient regarding hospice. Per patient she agrees to go under hospice with placement. Faxed to [facility]. Per Makenna with Hospice she will reach out to [place] and follow up with me. Informed GRISELDA Jacob
[2020-01-26 17:00] VITALS: BP 136/95
--- NOTE | 2020-01-26 17:09 | NUR ---
D/C Planning Makenna with [facility] is unable to find placement for patient. Placed called to patient advising her if she would like us to try a different hospice. Patient agrees and understand d/c plan. Faxed clinical information to [facility]. Followed up with Catherine with [facility] Ph:). Per Catherine she will be working on placement and will follow up with me. Will follow up in the morning.
--- NOTE | 2020-01-26 19:00 | NUR ---
patient awake, alert and oriented, patient c/o pain, POC explained to patient.
--- NOTE | 2020-01-26 19:30 | NUR ---
MEDICATED FOR PAIN, ENCOURAGED PATIENT TO GET UP, BEDSIDE COMMODE PROVIDED FOR PATIENT.
[2020-01-26] MEDS: ATORVASTATIN 20 MG TAB PO SCH (21:57)
[2020-01-26] MEDS: LATANOPROST 0.005 % OPTH(EYE) SOL 2.5ML EACHEYE SCH (21:57)
[2020-01-26 22:00] VITALS: BP 152/86
[2020-01-27] MEDS: ALBUTEROL SULF 2.5 MG/0.5ML(0.5%) NEB SOLN NEB SCH ×3 (00:17→11:37)
[2020-01-27] MEDS: IPRATROPIUM BROM 0.5 MG/2.5ML INH SOL NEB SCH ×3 (00:18→11:37)
[2020-01-27] MEDS: HYDROmorphone HCL 2 MG/ML VL IV PRN ×2 (01:53→08:01)
--- NOTE | 2020-01-27 04:50 | NUR ---
IV insertion IV access obtained, via clean sterile technique by inserting gauge catheter at right forearm after 1 attempt . IV secured properly. No trauma to site. Patient tolerated procedure well.IV removal IV DC'd with sterile technique, catheter fully intact. Pressure dressing applied to site. Patient tolerated procedure well. Discharged with aftercare instructions per
[2020-01-27 05:00] VITALS: BP 127/95
[2020-01-27] MEDS: BUDESONIDE (INHALATION) 0.5 MG/2 ML NEB NEB SCH (05:56)
--- NOTE | 2020-01-27 07:35 | NUR ---
Patient asked to have her buttock area be wiped. Explained to patient she can get up and walk to the bedside commode, she can wipe her buttock area. Patient insisted her buttock be wiped. Informed the patient I will wipe her buttock area at this time, but later she has to do it herself because she can. Extra toilet paper provided at bedside.
--- NOTE | 2020-01-27 07:35 | NUR ---
Patient is yelling, sitting up on the bed, nasal cannula pulled out from O2. Provided with long nasal cannula tubing. Patient stated she yelled because she got scared. Large, soft, formed brownish/greenish stools noted on the bedside commode. Put the patient back on gown, applied back the Telemetry pack. Cleaned the bedside commode.
--- NOTE | 2020-01-27 07:40 | NUR ---
Patient has tremors/shaking. Asked the patient if she's feeling cold, the electric fan is facing her. Patient asked to turn off the fan.
--- NOTE | 2020-01-27 07:45 | NUR ---
Opening Shift Note Assumed care of patient. Pt ia awake, alert, and oriented X 4, resting in bed. No S/S of respiratory distress noted or reported. respirations are regular and non-labored.Patient reports back pain 10 out of 10. Pain will be addressed per Dr's order.bed in lower position, brakes locked, call light within reach. Pt is instructed on POC and to call for assistance as needed. Will continue to monitor for changes Q1hr and PRN.
--- NOTE | 2020-01-27 07:57 | NUR ---
Pain assessment Patient complains on back pain 10 out of 10. Assessment performed. Pain will be addressed per Dr's order.
[2020-01-27 08:00] VITALS: BP 128/73
--- NOTE | 2020-01-27 08:35 | NUR ---
Pain reassessment Pain reassessment performed. patient states decrease in pain level to 6 out of 10. Patient resting in bed. Will continue to monitor.
[2020-01-27 09:00] VITALS: BP 128/73
--- NOTE | 2020-01-27 09:20 | NUR ---
Russian History Professor Rizwana explained to patient that she will be accepted at [facility] and care, patient has to pay the facility in advance. Rizwana to call back for update.
[2020-01-27] MEDS ORDERED: AZITHROMYCIN 250 MG TAB PO SCH (10:00)
[2020-01-27] MEDS: methylPREDNISolone SOD SUCC 125 MG/2 ML VL IV SCH (10:20)
[2020-01-27] MEDS: FAMOTIDINE 20 MG TAB PO SCH (10:20)
[2020-01-27] MEDS: BRIMONIDINE 0.2% OPTH Soln 5ml EACHEYE SCH (10:21)
[2020-01-27] MEDS: FUROSEMIDE 20 MG TAB PO SCH (10:21)
--- NOTE | 2020-01-27 10:30 | NUR ---
Received a call back from Transitions Manager Rizwana that patient is going to [facility] board and care, to be picked up by [facility] transport service at 2:00 pm today, patient's grandson to pay the facility.
--- NOTE | 2020-01-27 10:50 | NUR ---
Toothpaste, toothbrush, cup of water, face towel and basin provided as requested by the patient.
--- NOTE | 2020-01-27 12:00 | NUR ---
Roller Painter Rizwana called back. Rizwana made aware that patient asked for the [facility] facility address and phone #. Patient complained that nobody's answering. Explained to patient that she does not have to call the facility because the Roller Painter has arranged her transfer there and the transport service will pick her up at 2:00 pm today. Rizwana said she already talked to patient's grandson and gave the [facility] address and contact #. Rizwana said she will call the grandson again if he already sent the payment to the facility.
[2020-01-27] MEDS: HYDROcodone-ACET 5/325MG TAB PO PRN (12:02)
--- NOTE | 2020-01-27 12:05 | NUR ---
PAIN ASSESSMENT. PATIENT COMPLAINS ON BACK PAIN AND STATES IT IS 10 OUT OF 10. PAIN ASSESSMENT WAS PERFORMED. PAIN WILL BE ADDRESSED PER DR'S ORDER.
[2020-01-27 13:00] VITALS: BP 125/78
--- NOTE | 2020-01-27 13:05 | NUR ---
Pain reassessment Pain is reassessed. Patient states decrease in pain level to 8 out of 10. Position was changed. Heat packs were offered. Will continue to monitor.
--- NOTE | 2020-01-27 13:20 | NUR ---
Unit SecNayeli Kay said that the hospice called and said the greens picker time for patient's transfer to [facility] facility is at 2:00 pm.
--- NOTE | 2020-01-27 13:35 | NUR ---
Pain assessment Patient complains on back pain 9 out of 10. Assessment performed. Pain will be medicated per Dr's order.
--- NOTE | 2020-01-27 14:08 | NUR ---
PATIENT WAS ABLE TO WALK DOWN STAIRS TO SMOKING AREA TO SMOKE WITHOUT ANY ASSIST NEEDED. DC'D TO NURSING FOR FURTHER AMBULATION. Addendum: 01/27/20 at 1409 by JULIO CÉSAR DAVALOS PTT Amended: Links added.
--- NOTE | 2020-01-27 14:10 | NUR ---
Wood Heel Back Liner Rizwana called back that patient's chart picker time by the transport service changed from 2:00 pm to 4:00 pm. Informed the patient. Rizwana said no need to page her back for confirmation.
--- NOTE | 2020-01-27 14:37 | NUR ---
Pain reassessment Pain reassessment performed. Patient states the pain level does not changed and is 9 out of 10. Patient refuses heat and cold packs. Will continue to monitor.
--- NOTE | 2020-01-27 14:50 | NUR ---
Patient sitting on the bedside commode. Minimum amount of yellowish urine noted. Patient back to bed. Two sanitary pads provided as requested by the patient.
--- NOTE | 2020-01-27 14:58 | NUR ---
D/C Planning Placed followed up called to Catherine with [facility]:) regarding placement. Per Catherine patient has been accepted to [facility] Ph: ) address: [address] however, they are requesting a payment to be given to them first before accepting patient. Spoke to patient per patient she would like me to speak to her grandson Fady Ph:( [phone]) regarding d/c plan. Placed call to Fady regarding hospice with placement. Per Fady patient does not received an amount of 1100 from SSI patient is receiving an amount of 909. Advised aFdy I would follow up with Hospice and provided them with correct income. Placed followed up called to Catherine informing her patient income is 909 and grandson confirmed. Per Catherine patient is still able to go to [facility] with the amount of 909. Placed followed up called to Fady informing him [facility] will accept patient however, they need to received payment first. Fady agrees and understand d/c plan. Transportation has been arrange with [facility] transport Ph:) at 16:00. Informed GRISELDA Balbuena.
--- NOTE | 2020-01-27 15:10 | NUR ---
Patient stated her uncle is going to get an mergers and acquisitions attorney to wes the hospital and the staff. Patient stated that the facility she's going to is trying to scam her. Explained to patient the hospice confirmed that she will go to the [facility] care and Professor Of Vegetable Science talked to her grandson regarding the transfer.
--- NOTE | 2020-01-27 16:08 | NUR ---
D/C Planning Per Catherine with [facility], [facility] Ph:( [phone]) will follow patient at [facility].
--- NOTE | 2020-01-27 16:25 | NUR ---
Discharge instructions given as ordered. Encourage to follow up with PMD as instructed. All questions and concerns addressed. Patient verbalized understanding. Medication reconciliation form completed and copy given to patient. Home medications (two bottles of eye drops) held in Pharmacy returned to patient. IV removed with catheter intact, pressure dressing applied. Telemetry unit returned to ICU. Patient taken to vehicle via gurney with all personal belongings, accompanied by [facility] personnel for transfer to [facility]. No distress noted at time of departure.
== END 2020-01-27 16:25 | disposition home health service (06) | DRG 133 ==
LOC: EDBD 11:33 → ER 11:33 → TELE 11:34 → TELE-EAST 17:43 → TELE-CENTR 01-25 22:33
PROVIDERS: ADMIT Nurse Practitioner Acute Care; ATTEND Internal Medicine
DX: J96.21 Acute and chronic respiratory failure with hypoxia (principal); I11.0 Hypertensive heart disease with heart failure; I50.22 Chronic systolic (congestive) heart failure; D64.9 Anemia, unspecified; K43.9 Ventral hernia without obstruction or gangrene; J96.22 Acute and chronic respiratory failure with hypercapnia; I25.10 Atherosclerotic heart disease of native coronary artery without angina pectoris; D50.8 Other iron deficiency anemias; K21.9 Gastro-esophageal reflux disease without esophagitis; J44.1 Chronic obstructive pulmonary disease with (acute) exacerbation; R73.03 Prediabetes; I25.2 Old myocardial infarction; Z85.118 Personal history of other malignant neoplasm of bronchus and lung; Z90.49 Acquired absence of other specified parts of digestive tract; Z90.710 Acquired absence of both cervix and uterus; Z87.891 Personal history of nicotine dependence; Z79.899 Other long term (current) drug therapy; Z79.51 Long term (current) use of inhaled steroids; Z80.9 Family history of malignant neoplasm, unspecified; Z81.8 Family history of other mental and behavioral disorders; Z83.3 Family history of diabetes mellitus
CPT/HCPCS: 36415; 36600; 71045; 80048; 80053; 81001; 82728; 82805; 83605; 83615; 83735; 83880; 84484; 85025; 85610; 85652; 85730; 86141; 87040; 87070; 87081; 87086; 87804; 87880; 93005; 94640; 96365; 96366; 96368; 96375; 97163; G0378; J0696; J2405

== ENCOUNTER 2020-02-15 05:21 | Emergency (ER) | payer MEDICAID ==
[~2020-02-15] VITALS: Ht 157.5 cm; Wt 68.0 kg
[~2020-02-15 05:21] MED LIST changes: +ATOR20TA PO; -ATOR40TA52 PO; +BUSP10TA90 PO; +CARB25TA22 PO; +DULO60CA PO; +FAM20T PO; +GABA300C10 PO; +HYDR-531 PO; +IBUP400T21 PO; +IPRAAER6 INH; +LORA-655 PO; +LOSA-69 PO; +ONDA-144 PO; -PANT40T PO; -POT8T PO; +POTA1TAB61 PO; +PROM2SYP2 PO; +SUCR1SUS8 PO; +TIOTCAP IN; +TRAZ100T3 PO
[2020-02-15] MEDS ORDERED: HYDROcodone-ACET 10/325MG TAB PO ONE (05:45)
[2020-02-15 06:58] LABS: Basophils # (auto) 0 10 ^3/uL (0-0.2); Basophils % (auto) 0.7 % (0.0-2.0); Eosinophils # (auto) 0.2 10 ^3/uL (0-0.8); Eosinophils % (auto) 5.7 % (0.0-7.0); Hematocrit 33.8 % (36.0-46.0); Hemoglobin 10.7 g/dL (12.2-16.2); Lymphocytes # (auto) 0.8 10 ^3/uL (0.4-5.4); Lymphocytes % (auto) 19.7 % (10.0-50.0); Mean Corpuscular Hemoglobin 27.6 pg (28.0-32.0); Mean Corpuscular Hgb Conc. 31.7 g/dL (32.0-36.0); Mean Corpuscular Volume 87.1 fL (80.0-100.0); Monocytes # (auto) 0.5 10 ^3/uL (0-1.3); Monocytes % (auto) 13.5 % (0.0-12.0); Neutrophils # (auto) 2.3 10 ^3/uL (1.6-8.6); Neutrophils % (auto) 60.4 % (37.0-80.0); Nucleated Red Blood Cells % 0.1 %; Platelet Count (auto) 346 10^3/uL (140-450); Red Blood Cells 3.88 10^6/uL (4.0-5.20); Red Cell Distribution Width 15.5 % (11.8-14.3); White Blood Cell 3.9 10^3/uL (4.4-10.8)
[2020-02-15 07:14] LABS: Alanine Aminotransferase 9 U/L (13-56); Albumin 2.7 g/dL (3.4-5.0); Anion Gap 8 (5-15); Aspartate Aminotransferase 16 U/L (15-37); BUN/Creatinine Ratio 24.1; Blood Urea Nitrogen 14 mg/dL (7-18); Calcium 8.2 mg/dL (8.5-10.1); Carbon Dioxide 34 mmol/L (21-32); Chloride 100 mmol/L (98-107); GFR African American 135 mL/min; GFR Non-African American 111 mL/min; Glucose 120 mg/dL (74-106); Sodium 142 mmol/L (136-145)
[2020-02-15 07:18] LABS: Alkaline Phosphatase 80 U/L (45-117); Bilirubin, Total 0.4 mg/dL (0.2-1.0); Total Protein 6.6 g/dL (6.4-8.2)
[2020-02-15] MEDS ORDERED: POTASSIUM EFFERVESENT TAB 25 MEQ PO ONE (08:15)
[2020-02-15] MEDS: HYDROcodone-ACET 10/325MG TAB PO ONE ×2 (10:25→12:49)
--- NOTE | 2020-02-15 17:21 | NUR ---
assessment Patient is a 64 year old female who is alert and oriented. Prior to admission patient lived home with Fady her grand son and functioned with assistance. Per patient she will return home to her prior living arrangements post discharge. Patient informed me she has a fww, cane, wheelchair, and home 02 at 4L. Patient informed me she is on service with [facility] prior to admission. I informed patient of her consult to be placed on hospice. Patient wants to resume with [facility]. Per Peace with [facility] patient was never revoked since she is not admitted. Peace is setting up transport now. I informed patient she has a right to speak to a social and human services assistant regarding all care. I informed patient she has a right to participate in any and all discharge planning. Patient does not have a POA and advanced directive. I have offered patient information on POA and advanced directives. I informed the patient the advantages and benefits of having an Advanced Directive. Patient verbalized understanding and agreed to discharge plan. Addendum: 02/15/20 at 1725 by Elisha LYNN Amended: Links added.
[2020-02-15 18:10] VITALS: BP 111/78
== END 2020-02-15 18:55 | disposition still patient (30) ==
LOC: ER 05:21 → EDBD 05:21 → ER 18:55
DX: E16.2 Hypoglycemia, unspecified (principal); I11.0 Hypertensive heart disease with heart failure; I50.9 Heart failure, unspecified; J44.9 Chronic obstructive pulmonary disease, unspecified; I25.10 Atherosclerotic heart disease of native coronary artery without angina pectoris; K21.9 Gastro-esophageal reflux disease without esophagitis; E78.5 Hyperlipidemia, unspecified; I25.2 Old myocardial infarction; Z88.0 Allergy status to penicillin; Z88.5 Allergy status to narcotic agent
CPT/HCPCS: 36415; 71045; 80053; 83880; 84484; 85025; 93005

== ENCOUNTER 2020-02-16 07:24 | Inpatient (IN) | payer MEDICAID ==
[~2020-02-16] VITALS: Ht 165.1 cm; Wt 75.1 kg
[2020-02-16 08:05] LABS: Basophils # (auto) 0 10 ^3/uL (0-0.2); Basophils % (auto) 1.1 % (0.0-2.0); Eosinophils # (auto) 0.3 10 ^3/uL (0-0.8); Eosinophils % (auto) 7.9 % (0.0-7.0); Hematocrit 33.6 % (36.0-46.0); Hemoglobin 10.9 g/dL (12.2-16.2); Lymphocytes # (auto) 0.8 10 ^3/uL (0.4-5.4); Lymphocytes % (auto) 20.3 % (10.0-50.0); Mean Corpuscular Hemoglobin 28.2 pg (28.0-32.0); Mean Corpuscular Hgb Conc. 32.5 g/dL (32.0-36.0); Mean Corpuscular Volume 86.7 fL (80.0-100.0); Monocytes # (auto) 0.5 10 ^3/uL (0-1.3); Monocytes % (auto) 12.6 % (0.0-12.0); Neutrophils # (auto) 2.2 10 ^3/uL (1.6-8.6); Neutrophils % (auto) 58.1 % (37.0-80.0); Nucleated Red Blood Cells % 0.1 %; Platelet Count (auto) 382 10^3/uL (140-450); Red Blood Cells 3.87 10^6/uL (4.0-5.20); White Blood Cell 3.8 10^3/uL (4.4-10.8)
[2020-02-16 08:26] LABS: Alanine Aminotransferase 15 U/L (13-56); Albumin 2.8 g/dL (3.4-5.0); Anion Gap 7 (5-15); Aspartate Aminotransferase 17 U/L (15-37); BUN/Creatinine Ratio 31.5; Blood Urea Nitrogen 17 mg/dL (7-18); Calcium 8.3 mg/dL (8.5-10.1); Carbon Dioxide 35 mmol/L (21-32); Chloride 99 mmol/L (98-107); GFR African American 146 mL/min; GFR Non-African American 121 mL/min; Glucose 88 mg/dL (74-106); Magnesium 1.7 mg/dL (1.6-2.6); Potassium 3.6 mmol/L (3.5-5.1); Sodium 141 mmol/L (136-145)
[2020-02-16 08:34] LABS: Alkaline Phosphatase 81 U/L (45-117); Bilirubin, Total 0.3 mg/dL (0.2-1.0); Total Protein 6.8 g/dL (6.4-8.2)
[2020-02-16 08:35] LABS: Urine Bacteria NONE SEEN /hpf (None Seen); Urine Blood Negative /uL (Negative); Urine Hyaline Cast FEW /lpf (0 - 2); Urine Mucus FEW (None Seen); Urine Specific Gravity 1.024 (1.001-1.035); Urine WBC 3 /hpf (0 - 5)
[2020-02-16 08:45] LABS: Alcohol, Urine < 3.0 mg/dL (0-5); Amphetamine Screen, Urine NEGATIVE (NEGATIVE); Cannabinoid Screen, Urine NEGATIVE (NEGATIVE)
[2020-02-16 08:54] LABS: Barbiturate Scree,Urine NEGATIVE (NEGATIVE); Benzodiazephine Screen, Urine NEGATIVE (NEGATIVE); Cocaine Screen, Urine NEGATIVE (NEGATIVE); Opiate Scree,Urine POSITIVE (NEGATIVE); Phencyclidine Screen, Urine NEGATIVE (NEGATIVE)
[2020-02-16] MEDS ORDERED: NITROGLYCERIN 0.4 MG SL TAB SL PRN (09:45)
[2020-02-16] MEDS ORDERED: ONDANSETRON HCL 4 MG/2 ML VIAL IV PRN (09:45)
[2020-02-16] MEDS ORDERED: MORPHINE SULF INJ 2 MG/ML SYRINGE 1ML IV PRN (09:45)
[2020-02-16] MEDS ORDERED: PATIENTS OWN MEDICATION (Duloxetine Hcl (Cymbalta) 30 MG) PO SCH (10:00)
[2020-02-16 10:24] VITALS: BP 125/78
[2020-02-16] MEDS: DULoxetine HCL 30 MG CAP PO SCH (10:25)
[2020-02-16] MEDS: FAMOTIDINE 20 MG TAB PO SCH (10:26)
[2020-02-16] MEDS: LORazepam 0.5 MG TAB PO PRN ×2 (10:27→22:08)
[2020-02-16] MEDS: traMADol HCL 50 MG TAB PO PRN ×3 (10:28→22:08)
[2020-02-16] MEDS: BRIMONIDINE 0.2% OPTH Soln 5ml EACHEYE SCH ×2 (10:29→22:00)
[2020-02-16] MEDS ORDERED: PATIENTS OWN MEDICATION (Carbidopa-Levodopa (Carbidopa/Levodopa Odt 25-100 mg) 1 TAB) PO SCH (12:00)
[2020-02-16 13:00] VITALS: BP 123/76
[2020-02-16] MEDS: CARBIDOPA W LEVODOPA 25/100mg TABLET PO SCH ×3 (14:07→22:08)
[2020-02-16 17:08] VITALS: BP 113/90
[2020-02-16] MEDS: IPRATROPIUM BROM 0.5 MG/2.5ML INH SOL NEB PRN (20:19)
[2020-02-16] MEDS: ALBUTEROL SULF 2.5 MG/0.5ML(0.5%) NEB SOLN NEB PRN (20:19)
[2020-02-16] MEDS: LATANOPROST 0.005 % OPTH(EYE) SOL 2.5ML EACHEYE SCH (22:00)
[2020-02-16] MEDS: GABAPENTIN 300 MG CAP PO SCH (22:08)
[2020-02-16] MEDS: ATORVASTATIN 20 MG TAB PO SCH (22:08)
[2020-02-16 23:36] VITALS: BP 128/79
[2020-02-17] MEDS: traMADol HCL 50 MG TAB PO PRN ×3 (04:00→23:41)
[2020-02-17 05:00] VITALS: BP 140/85
[2020-02-17] MEDS: CARBIDOPA W LEVODOPA 25/100mg TABLET PO SCH ×4 (05:43→22:06)
[2020-02-17 06:33] LABS: Basophils # (auto) 0 10 ^3/uL (0-0.2); Eosinophils # (auto) 0.4 10 ^3/uL (0-0.8); Eosinophils % (auto) 11.5 % (0.0-7.0); Hematocrit 29.6 % (36.0-46.0); Hemoglobin 9.6 g/dL (12.2-16.2); Lymphocytes # (auto) 1.1 10 ^3/uL (0.4-5.4); Lymphocytes % (auto) 29.2 % (10.0-50.0); Mean Corpuscular Hemoglobin 28.2 pg (28.0-32.0); Mean Corpuscular Hgb Conc. 32.5 g/dL (32.0-36.0); Mean Corpuscular Volume 86.8 fL (80.0-100.0); Monocytes # (auto) 0.6 10 ^3/uL (0-1.3); Neutrophils # (auto) 1.6 10 ^3/uL (1.6-8.6); Neutrophils % (auto) 42.3 % (37.0-80.0); Nucleated Red Blood Cells % 0.1 %; Platelet Count (auto) 361 10^3/uL (140-450); Red Blood Cells 3.41 10^6/uL (4.0-5.20); Red Cell Distribution Width 15.3 % (11.8-14.3); White Blood Cell 3.7 10^3/uL (4.4-10.8)
[2020-02-17 06:48] LABS: Chloride 99 mmol/L (98-107); Potassium 3.1 mmol/L (3.5-5.1); Sodium 139 mmol/L (136-145)
[2020-02-17 06:55] LABS: Alanine Aminotransferase < 6 U/L (13-56); Albumin 2.6 g/dL (3.4-5.0); Alkaline Phosphatase 70 U/L (45-117); Anion Gap 5 (5-15); Aspartate Aminotransferase 13 U/L (15-37); BUN/Creatinine Ratio 19.6; Bilirubin, Total 0.3 mg/dL (0.2-1.0); Blood Urea Nitrogen 11 mg/dL (7-18); Calcium 8.3 mg/dL (8.5-10.1); Carbon Dioxide 35 mmol/L (21-32); GFR African American 140 mL/min; GFR Non-African American 116 mL/min; Glucose 85 mg/dL (74-106); Total Protein 6.3 g/dL (6.4-8.2)
[2020-02-17 09:20] VITALS: BP 142/84
[2020-02-17] MEDS: BRIMONIDINE 0.2% OPTH Soln 5ml EACHEYE SCH ×2 (10:00→22:06)
[2020-02-17] MEDS: FAMOTIDINE 20 MG TAB PO SCH (10:11)
[2020-02-17] MEDS: DULoxetine HCL 30 MG CAP PO SCH (10:11)
[2020-02-17] MEDS: LORazepam 0.5 MG TAB PO PRN ×2 (10:11→22:06)
[2020-02-17] MEDS: IPRATROPIUM BROM 0.5 MG/2.5ML INH SOL NEB PRN (10:44)
[2020-02-17] MEDS: ALBUTEROL SULF 2.5 MG/0.5ML(0.5%) NEB SOLN NEB PRN (10:45)
[2020-02-17 13:00] VITALS: BP 117/76
[2020-02-17] MEDS ORDERED: POTASSIUM CHL 20 Meq TABLET PO ONE (15:15)
[2020-02-17] MEDS ORDERED: MAGNESIUM OXIDE 400 MG TAB PO ONE (15:15)
[2020-02-17 16:56] VITALS: BP 132/75
[2020-02-17 21:40] VITALS: BP 134/85
[2020-02-17] MEDS: LATANOPROST 0.005 % OPTH(EYE) SOL 2.5ML EACHEYE SCH (22:00)
[2020-02-17] MEDS: MAGNESIUM OXIDE 400 MG TAB PO SCH (22:06)
[2020-02-17] MEDS: GABAPENTIN 300 MG CAP PO SCH (22:06)
[2020-02-17] MEDS: ATORVASTATIN 20 MG TAB PO SCH (22:06)
[2020-02-18] MEDS ORDERED: AMLO5TAB15 PO (02:38)
[2020-02-18] MEDS ORDERED: CARV6.2551 PO (02:38)
[2020-02-18] MEDS ORDERED: PANT40TA2 PO (02:38)
[2020-02-18 05:00] VITALS: BP 105/72
[2020-02-18] MEDS: traMADol HCL 50 MG TAB PO PRN (06:12)
[2020-02-18] MEDS: CARBIDOPA W LEVODOPA 25/100mg TABLET PO SCH ×3 (06:12→17:37)
[2020-02-18 08:00] VITALS: BP 117/66
[2020-02-18 08:59] VITALS: BP 117/66
[2020-02-18] MEDS: FAMOTIDINE 20 MG TAB PO SCH (09:28)
[2020-02-18] MEDS: BRIMONIDINE 0.2% OPTH Soln 5ml EACHEYE SCH (09:28)
[2020-02-18] MEDS: DULoxetine HCL 30 MG CAP PO SCH (09:28)
[2020-02-18] MEDS: MAGNESIUM OXIDE 400 MG TAB PO SCH (09:28)
[2020-02-18 09:41] LABS: Basophils # (auto) 0 10 ^3/uL (0-0.2); Basophils % (auto) 0.4 % (0.0-2.0); Eosinophils # (auto) 0.5 10 ^3/uL (0-0.8); Eosinophils % (auto) 11.9 % (0.0-7.0); Hematocrit 33.6 % (36.0-46.0); Hemoglobin 10.9 g/dL (12.2-16.2); Lymphocytes # (auto) 0.8 10 ^3/uL (0.4-5.4); Mean Corpuscular Hemoglobin 28.6 pg (28.0-32.0); Mean Corpuscular Hgb Conc. 32.6 g/dL (32.0-36.0); Monocytes # (auto) 0.5 10 ^3/uL (0-1.3); Monocytes % (auto) 13.4 % (0.0-12.0); Neutrophils % (auto) 53.3 % (37.0-80.0); Platelet Count (auto) 400 10^3/uL (140-450); Red Blood Cells 3.82 10^6/uL (4.0-5.20); White Blood Cell 3.8 10^3/uL (4.4-10.8)
[2020-02-18 09:51] LABS: BUN/Creatinine Ratio 6.3; Magnesium 1.7 mg/dL (1.6-2.6); Potassium 3.8 mmol/L (3.5-5.1)
[2020-02-18] MEDS: LORazepam 0.5 MG TAB PO PRN (10:35)
[2020-02-18] MEDS ORDERED: MAGNESIUM OXIDE 400 MG TAB PO ONE (10:45)
[2020-02-18 13:00] VITALS: BP 134/70
[2020-02-18 17:00] VITALS: BP_SYST 127; BP_SYST 131; BP_DIAS 72; BP_DIAS 80
[2020-02-18] MEDS: ALBUTEROL SULF 2.5 MG/0.5ML(0.5%) NEB SOLN NEB PRN (18:47)
[2020-02-18] MEDS: IPRATROPIUM BROM 0.5 MG/2.5ML INH SOL NEB PRN (18:47)
[2020-02-18 19:35] VITALS: BP 134/70
== END 2020-02-18 20:10 | disposition hospice, home (50) | DRG 812 ==
LOC: EDBD 07:24 → ER 07:24 → TELE 07:25 → TELE-CENTR 11:14
PROVIDERS: ADMIT Nurse Practitioner Acute Care; ATTEND Internal Medicine
DX: T40.2X1A Poisoning by other opioids, accidental (unintentional), initial encounter (principal); G92 Toxic encephalopathy; E44.0 Moderate protein-calorie malnutrition; J96.12 Chronic respiratory failure with hypercapnia; G20 Parkinson's disease; I50.9 Heart failure, unspecified; I11.0 Hypertensive heart disease with heart failure; K43.9 Ventral hernia without obstruction or gangrene; D63.8 Anemia in other chronic diseases classified elsewhere; F32.9 Major depressive disorder, single episode, unspecified; K21.9 Gastro-esophageal reflux disease without esophagitis; Z79.891 Long term (current) use of opiate analgesic; E78.5 Hyperlipidemia, unspecified; F41.9 Anxiety disorder, unspecified; I25.10 Atherosclerotic heart disease of native coronary artery without angina pectoris; J44.9 Chronic obstructive pulmonary disease, unspecified; Z79.899 Other long term (current) drug therapy; Z82.0 Family history of epilepsy and other diseases of the nervous system; Z80.8 Family history of malignant neoplasm of other organs or systems; Z83.3 Family history of diabetes mellitus; Z85.118 Personal history of other malignant neoplasm of bronchus and lung; Z90.710 Acquired absence of both cervix and uterus; Z87.891 Personal history of nicotine dependence; Z88.0 Allergy status to penicillin; Z88.5 Allergy status to narcotic agent; Z90.49 Acquired absence of other specified parts of digestive tract; Z71.51 Drug abuse counseling and surveillance of drug abuser; Y92.89 Other specified places as the place of occurrence of the external cause; Z68.26 Body mass index [BMI] 26.0-26.9, adult
CPT/HCPCS: 36415; 51702; 70450; 71045; 80048; 80053; 80307; 81001; 83735; 84484; 85025; 87493; 93005; 94640; 97163; 99291; G0378

== ENCOUNTER 2020-06-14 10:56 | Inpatient (IN) | payer MEDICAID ==
[~2020-06-14] VITALS: Ht 160 cm; Wt 66.7 kg
[~2020-06-14 10:56] MED LIST changes: +AMLO5TAB15 PO; +CARV6.2551 PO; -FAM20T PO; +FAMO20TA10 PO; +PANT40TA2 PO; +SUCR1SUS16 PO; -SUCR1SUS8 PO
[2020-06-14] MEDS ORDERED: methylPREDNISolone SOD SUCC 125 MG/2 ML VL IV ONE (11:00)
[2020-06-14 12:14] LABS: Basophils # (auto) 0 10 ^3/uL (0-0.2); Basophils % (auto) 1.1 % (0.0-2.0); Eosinophils # (auto) 0.4 10 ^3/uL (0-0.8); Hematocrit 32.3 % (36.0-46.0); Hemoglobin 10.3 g/dL (12.2-16.2); Lymphocytes # (auto) 1.1 10 ^3/uL (0.4-5.4); Lymphocytes % (auto) 30.7 % (10.0-50.0); Mean Corpuscular Hemoglobin 27.5 pg (28.0-32.0); Mean Corpuscular Volume 85.9 fL (80.0-100.0); Monocytes # (auto) 0.4 10 ^3/uL (0-1.3); Monocytes % (auto) 11.2 % (0.0-12.0); Neutrophils # (auto) 1.6 10 ^3/uL (1.6-8.6); Platelet Count (auto) 419 10^3/uL (140-450); Red Blood Cells 3.75 10^6/uL (4.0-5.20); Red Cell Distribution Width 15.8 % (11.8-14.3); White Blood Cell 3.5 10^3/uL (4.4-10.8)
[2020-06-14] MEDS ORDERED: ONDANSETRON HCL 4 MG/2 ML VIAL IV ONE (12:30)
[2020-06-14] MEDS ORDERED: MORPHINE SULF INJ 2 MG/ML SYRINGE 1ML IV ONE (12:30)
[2020-06-14 12:43] LABS: Albumin 3.1 g/dL (3.4-5.0); Anion Gap 1 (5-15); Blood Urea Nitrogen 18 mg/dL (7-18); Chloride 94 mmol/L (98-107); Glucose 91 mg/dL (74-106); Potassium 3.9 mmol/L (3.5-5.1); Sodium 138 mmol/L (136-145)
[2020-06-14 12:51] LABS: Alanine Aminotransferase 10 U/L (13-56); Alkaline Phosphatase 93 U/L (45-117); Aspartate Aminotransferase 9 U/L (15-37); Bilirubin, Total 0.2 mg/dL (0.2-1.0); CRP High Sensitivity 2.03 mg/dL (< 0.3); GFR African American 105 mL/min; GFR Non-African American 87 mL/min; Lactate Dehydrogenase 121 U/L (84-246); Total Protein 7.2 g/dL (6.4-8.2)
[2020-06-14] MEDS: SODIUM CHLORIDE 0.9% 1,000 ML IV SCH (12:55)
[2020-06-14 12:59] LABS: Carbon Dioxide 43 mmol/L (21-32)
[2020-06-14] MEDS ORDERED: NITROGLYCERIN 0.4 MG SL TAB SL PRN (13:00)
[2020-06-14] MEDS ORDERED: DOCUSATE CALCIUM 240 MG CAP PO PRN (13:00)
[2020-06-14] MEDS: CARBIDOPA W LEVODOPA 25/100mg TABLET PO SCH ×2 (14:00→22:13)
[2020-06-14] MEDS ORDERED: hydrALAZINE HCL 20 MG/ML VL IV PRN (14:00)
[2020-06-14] MEDS ORDERED: IPRATROPIUM-ALBUTEROL 20mCg/100mCg INHALER IN SCH (14:00)
[2020-06-14 14:09] VITALS: BP 127/80
[2020-06-14] MEDS: HYDROmorphone HCL 2 MG/ML VL IV PRN ×2 (14:44→22:54)
[2020-06-14] MEDS: LORazepam 0.5 MG TAB PO PRN (14:45)
--- NOTE | 2020-06-14 16:00 | NUR ---
Patient arrived to unit in wheelchair, patient is on 4L o2 which is her home 02 use as well. Patient was able to transfer and take aprox. 10 steps to bed, patient hands are shaky from parkinson's symptoms. patient is concerned about when she gets to leave, I explained that it was dependant on the doctor and what her labs/tests show. Patient 02 was 93% on the 4L o2. On RM air patient is at 74%. Patients vitals were all stable at this time. patient made comfortable in her bed, she seemed to be irritated that she had to be here and had to be bothered with us doing her vitals and assessment, but she did comply. Patient instructed on use of call light, and oriented to room.
[2020-06-14 16:56] VITALS: BP 134/85
[2020-06-14] MEDS: SUCRALFATE 1 GM/10 ML ORAL SUSP PO SCH ×3 (17:00→22:12)
[2020-06-14] MEDS: ONDANSETRON ODT 4 MG TAB PO SCH ×2 (17:25→17:29)
--- NOTE | 2020-06-14 17:29 | NUR ---
patient sleeping, when awoken for medications patient did not want to be bothered, woke up for a few seconds then went wback to sleep. Respirations even and unlabored.
--- NOTE | 2020-06-14 19:20 | NUR ---
Opening Shift Note Received report from edna Matamoros RN. Assumed care of patient, sleepy and lethargic but alert when awaken. No S/S of distress/SOB or pain. Saturating at 96%on 4LNC, patient has even and unlabored respirations. Instructed on POC and to call for assist PRN, will continue to monitor for changes Q1hr and PRN. Bed placed in lowest position, bed alarm turned on and call light within reach.
[2020-06-14 20:00] VITALS: BP 110/69
[2020-06-14] MEDS ORDERED: traZODone HCL 50 MG TAB PO PRN (21:00)
[2020-06-14 22:00] VITALS: BP 110/69
[2020-06-14] MEDS: TIMOLOL EACHEYE SCH (22:00)
[2020-06-14] MEDS: ALBUTEROL SULF HFA 90MCG INH 200DOSE IN SCH (22:00)
[2020-06-14] MEDS: DORZOLAMIDE EACHEYE SCH (22:00)
[2020-06-14] MEDS ORDERED: FAMOTIDINE 20 MG TAB PO SCH (22:00)
[2020-06-14] MEDS: DOXYCYCLINE 100 MG TAB/CAP PO SCH (22:12)
[2020-06-14] MEDS: LATANOPROST 0.005 % OPTH(EYE) SOL 2.5ML EACHEYE SCH (22:12)
[2020-06-14] MEDS: BRIMONIDINE 0.2% OPTH Soln 5ml EACHEYE SCH (22:12)
[2020-06-14] MEDS: CARVEDILOL 3.125 MG TAB PO SCH (22:13)
[2020-06-14] MEDS: ATORVASTATIN 20 MG TAB PO SCH (22:13)
[2020-06-14] MEDS: GABAPENTIN 300 MG CAP PO SCH (22:14)
[2020-06-14] MEDS: busPIRone HCL 10 MG TAB PO SCH (22:14)
[2020-06-15] MEDS: HYDROmorphone HCL 2 MG/ML VL IV PRN ×7 (02:00→21:33)
[2020-06-15 05:00] VITALS: BP 115/63
[2020-06-15] MEDS: ONDANSETRON ODT 4 MG TAB PO SCH ×4 (05:04→18:18)
[2020-06-15] MEDS: LORazepam 0.5 MG TAB PO PRN (05:09)
[2020-06-15 05:49] LABS: Basophils # (auto) 0 10 ^3/uL (0-0.2); Eosinophils # (auto) 0 10 ^3/uL (0-0.8); Hemoglobin 10.2 g/dL (12.2-16.2); Lymphocytes # (auto) 0.9 10 ^3/uL (0.4-5.4); Monocytes # (auto) 0.5 10 ^3/uL (0-1.3)
[2020-06-15 05:51] LABS: Basophils % (auto) 0.4 % (0.0-2.0); Eosinophils % (auto) 0.1 % (0.0-7.0); Hematocrit 31.2 % (36.0-46.0); Lymphocytes % (auto) 13.9 % (10.0-50.0); Mean Corpuscular Hemoglobin 27.9 pg (28.0-32.0); Mean Corpuscular Hgb Conc. 32.8 g/dL (32.0-36.0); Monocytes % (auto) 7.7 % (0.0-12.0); Neutrophils # (auto) 5.1 10 ^3/uL (1.6-8.6); Neutrophils % (auto) 77.9 % (37.0-80.0); Platelet Count (auto) 476 10^3/uL (140-450); Red Blood Cells 3.67 10^6/uL (4.0-5.20); Red Cell Distribution Width 15.6 % (11.8-14.3); White Blood Cell 6.6 10^3/uL (4.4-10.8)
[2020-06-15 06:10] LABS: Albumin 3.1 g/dL (3.4-5.0); Potassium 4.4 mmol/L (3.5-5.1)
[2020-06-15 06:14] LABS: BUN/Creatinine Ratio 21.5; Bilirubin, Total 0.2 mg/dL (0.2-1.0); Total Protein 7.2 g/dL (6.4-8.2)
--- NOTE | 2020-06-15 06:41 | NUR ---
MDI THERAPY HELD AT THIS TIME, PENDING TEST RESULTS FOR COVID-19. HR 104, RR 16, SPO2 98% ON 3LPM NASAL CANNULA. BREATH SOUNDS CLEAR/DIM. PT RESTING IN BED WITH NO S/S OF DISTRESS.
[2020-06-15] MEDS: ALBUTEROL SULF HFA 90MCG INH 200DOSE IN SCH ×2 (06:44→13:59)
[2020-06-15] MEDS: CARBIDOPA W LEVODOPA 25/100mg TABLET PO SCH ×3 (06:53→21:34)
[2020-06-15] MEDS: SUCRALFATE 1 GM/10 ML ORAL SUSP PO SCH ×4 (06:53→21:34)
--- NOTE | 2020-06-15 07:35 | NUR ---
Opening shift note Patient AOx4 visibly upset stating she has been waiting for someone to come in and medicate her for pain. Patient made aware at this time that Dilaudid 0.25 mg IV PRN was given at 0508 and is not do until 0808 as medication is every 3 hours as needed. Patient states pain is not being relieved by current treatment. Will notify MD regarding this. Patient was also informed of POC for the day and to call for assistance as needed, patient verbalized understanding. Patient assisted to bedside commode, gait stable, shakiness noted on extremities as patient has history of Parkinson's disease. Bed set to low position, locked, and call light within reach. Will continue care.
[2020-06-15 08:28] VITALS: BP 130/82
[2020-06-15] MEDS ORDERED: CHOLECALCIFEROL (VITD3) 2,000 UNIT CAP PO SCH (10:00)
[2020-06-15] MEDS ORDERED: DexAMETHasone SOD PHOS 10MG/1ML VIAL INJ IV SCH (10:00)
[2020-06-15] MEDS ORDERED: Tiotropium Bromide Monohydrate (Spiriva Handihaler) 18 MCG IN SCH (10:00)
[2020-06-15] MEDS ORDERED: ASCORBIC ACID 1,000 MG TAB PO SCH (10:00)
[2020-06-15] MEDS: BRIMONIDINE 0.2% OPTH Soln 5ml EACHEYE SCH ×2 (11:21→21:33)
[2020-06-15] MEDS: LATANOPROST 0.005 % OPTH(EYE) SOL 2.5ML EACHEYE SCH ×2 (11:21→21:33)
[2020-06-15] MEDS: DULoxetine HCL 30 MG CAP PO SCH (11:22)
[2020-06-15] MEDS: LOSARTAN POTASSIUM 50 MG TAB PO SCH (11:22)
[2020-06-15] MEDS: DOXYCYCLINE 100 MG TAB/CAP PO SCH ×2 (11:22→21:34)
[2020-06-15] MEDS: FUROSEMIDE 20 MG TAB PO SCH (11:22)
[2020-06-15] MEDS: CARVEDILOL 3.125 MG TAB PO SCH (11:23)
[2020-06-15] MEDS: PANTOPRAZOLE 40 MG TAB PO SCH (11:23)
[2020-06-15] MEDS: POTASSIUM CHL 10 Meq TABLET PO SCH (11:24)
[2020-06-15] MEDS: busPIRone HCL 10 MG TAB PO SCH ×2 (11:24→21:34)
[2020-06-15] MEDS: ENOXAPARIN SOD 40 MG/0.4 ML SYRINGE SC SCH (11:25)
[2020-06-15] MEDS: ZINC SULFATE 220mg CAP or TAB PO SCH (11:25)
[2020-06-15] MEDS: amLODIPine BESYLATE 5 MG TAB PO SCH (11:25)
[2020-06-15] MEDS: TIMOLOL EACHEYE SCH ×2 (11:26→21:33)
[2020-06-15] MEDS: DORZOLAMIDE EACHEYE SCH ×2 (11:26→21:33)
[2020-06-15] MEDS ORDERED: HYDROmorphone HCL 2 MG/ML VL IV ONE (11:45)
[2020-06-15 12:58] VITALS: BP 128/77
--- NOTE | 2020-06-15 14:00 | NUR ---
MDI THERAPY HELD AT THIS TIME, PENDING TEST RESULTS FOR COVID-19. HR 93, RR 18, SPO2 93% ON 3LPM NASAL CANNULA. PT SITTING UP AT SIDE OF BED, NO S/S OF DISTRESS.
[2020-06-15 14:04] LABS: Urine Bacteria NONE SEEN /hpf (None Seen); Urine Blood Negative /uL (Negative); Urine Hyaline Cast FEW /lpf (0 - 2); Urine Specific Gravity 1.016 (1.001-1.035); Urine WBC 54 /hpf (0 - 5)
--- NOTE | 2020-06-15 14:15 | NUR ---
Frequent call light usage regarding pain medication Patient continuously making use of call light to request pain medication. Patient educated multiple times on frequency allowed for pain medication. Patient continues to verbalize understanding after every teaching but continues to press call light button as soon as this RN leaves the room. MD has upgraded the dose of Dilaudid from 0.25 mg IV Q3hr PRN for severe pain to 1mg IV Q3hr PRN but patient continues to state pain is not being relieved. MD is aware and no new orders for pain management received at this time.
[2020-06-15] MEDS: methylPREDNISolone SOD SUCC 40 MG/ML VL IV SCH ×2 (15:20→21:34)
[2020-06-15 16:29] VITALS: BP 113/71
--- NOTE | 2020-06-15 16:45 | NUR ---
COVID PCR RETURNED NEGATIVE. PT COMPLAINING OF SOB AND REQUESTING BREATHING TX. ADMINISTERED MEDNEB TX AT THIS TIME. HR 98, RR 22, SPO2 95% ON 3LPM NASAL CANNULA. BREATH SOUNDS DIM EXP WHEEZING. NO ADVERSE REACTIONS. PT SAYS SHE FEELS BETTER AFTER TX. NO S/S OF DISTRESS. WILL ENDORSE CARE TO ONCOMING RT.
[2020-06-15] MEDS: IPRATROPIUM BROM 0.5 MG/2.5ML INH SOL NEB SCH (16:55)
[2020-06-15] MEDS: ALBUTEROL SULF 2.5 MG/0.5ML(0.5%) NEB SOLN NEB SCH (16:55)
[2020-06-15] MEDS: SODIUM CHLORIDE 0.9% 1,000 ML IV SCH (18:17)
--- NOTE | 2020-06-15 20:35 | NUR ---
Assumed care of patient Received report from Shereen VILLALOBOS. Patient transferred to room 206. No S/S of distress/SOB or pain. Instructed on POC and to call for assist PRN. Bed in lowest locked position, call light within reach, side rails up x2, fall precautions in place. Will continue to monitor for changes Q1hr and PRN.
--- NOTE | 2020-06-15 20:35 | NUR ---
endorsed care to GRISELDA Alvarez.
[2020-06-15] MEDS: ATORVASTATIN 20 MG TAB PO SCH (21:34)
[2020-06-15] MEDS: GABAPENTIN 300 MG CAP PO SCH (21:34)
[2020-06-15 22:00] VITALS: BP 106/74
--- NOTE | 2020-06-15 23:30 | NUR ---
IV insertion IV access obtained, via clean sterile technique by inserting 22 gauge catheter at right forearm after 1 attempt. IV secured properly. No trauma to site. Patient tolerated well.
[2020-06-16] MEDS: ONDANSETRON ODT 4 MG TAB PO SCH ×4 (00:33→18:09)
[2020-06-16] MEDS: HYDROmorphone HCL 2 MG/ML VL IV PRN ×8 (00:33→22:35)
[2020-06-16] MEDS: ALBUTEROL SULF 2.5 MG/0.5ML(0.5%) NEB SOLN NEB SCH ×4 (00:43→18:40)
[2020-06-16] MEDS: IPRATROPIUM BROM 0.5 MG/2.5ML INH SOL NEB SCH ×4 (00:43→18:40)
[2020-06-16] MEDS: LORazepam 0.5 MG TAB PO PRN (01:28)
[2020-06-16 05:00] VITALS: BP 122/77
[2020-06-16] MEDS: methylPREDNISolone SOD SUCC 40 MG/ML VL IV SCH ×3 (06:34→21:20)
[2020-06-16] MEDS: CARBIDOPA W LEVODOPA 25/100mg TABLET PO SCH ×3 (06:34→21:20)
[2020-06-16] MEDS: SUCRALFATE 1 GM/10 ML ORAL SUSP PO SCH ×4 (06:35→21:20)
[2020-06-16 06:54] LABS: Potassium 4.1 mmol/L (3.5-5.1)
[2020-06-16 07:04] LABS: BUN/Creatinine Ratio 21.8; Calcium 9.2 mg/dL (8.5-10.1)
--- NOTE | 2020-06-16 07:30 | NUR ---
Opening Shift Note Assuming care of patient at this time. Patient is awake and alert. Patient denies pain. Patient shows no signs or symptoms of distress or shortness of breath. Bed is locked and lowered with side rails up x2. Instructed patient on the plan of care for today and to call for assistance as needed. Call light within reach.
[2020-06-16 09:25] VITALS: BP 128/74
[2020-06-16] MEDS: busPIRone HCL 10 MG TAB PO SCH ×2 (10:00→21:20)
[2020-06-16] MEDS: DOXYCYCLINE 100 MG TAB/CAP PO SCH ×2 (10:00→21:20)
[2020-06-16] MEDS: ZINC SULFATE 220mg CAP or TAB PO SCH (10:00)
[2020-06-16] MEDS ORDERED: CHOLECALCIFEROL (VITD3) 1,000UNIT=25mCg TAB PO SCH (10:00)
[2020-06-16] MEDS ORDERED: ASCORBIC ACID 500 MG TAB PO SCH (10:00)
[2020-06-16] MEDS: DULoxetine HCL 30 MG CAP PO SCH (10:00)
[2020-06-16] MEDS: POTASSIUM CHL 10 Meq TABLET PO SCH (10:01)
[2020-06-16] MEDS: PANTOPRAZOLE 40 MG TAB PO SCH (10:01)
[2020-06-16] MEDS: amLODIPine BESYLATE 5 MG TAB PO SCH (10:01)
[2020-06-16] MEDS: LOSARTAN POTASSIUM 50 MG TAB PO SCH (10:01)
[2020-06-16] MEDS: FUROSEMIDE 20 MG TAB PO SCH (10:02)
[2020-06-16] MEDS: BRIMONIDINE 0.2% OPTH Soln 5ml EACHEYE SCH ×2 (10:04→21:19)
[2020-06-16] MEDS: ENOXAPARIN SOD 40 MG/0.4 ML SYRINGE SC SCH (10:09)
[2020-06-16 12:31] VITALS: BP 114/73
--- NOTE | 2020-06-16 12:49 | NUR ---
Nutrition Assessment Est energy needs 1524-5022 kcal (25-30 kcal/kg BW 66.2kg) Est protein needs 53-66g (0.8-1g/kg BW 66.2kg) Aisha garcia. Addendum: 06/16/20 at [address] Amended: Links added.
--- NOTE | 2020-06-16 13:26 | NUR ---
Pain Notified Dr. Pyle that patient is complaining of pain 10/10 to her back that is unrelieved by ordered Dilaudid. Order to increase pain medication. Will put in new orders and notify patient.
[2020-06-16] MEDS ORDERED: cefTRIAXone 1GM/50ML D5W 50 ML IV ONE (16:00)
--- NOTE | 2020-06-16 16:03 | NUR ---
Assessment Regarding social service consult to resume hospice. Patient is a 64-year old female who is alert and oriented. Prior to admission patient lived home with family and functioned with assistance. Per patient she will return home to her prior living arrangements post discharge. Prior to admission patient was on service with [facility]. Patient would like to resume service with agency. Faxed clinical information to [facility]. Per Amy with [facility] they are unable to accept patient back at this time. Informed patient regarding [facility] unable to resume service. Information and choice letter was given to patient. Patient requested [facility]. Faxed clinical information to [facility]. Per Sandy with [facility] they will run eligibility and will contact me back if they can accept. Informed patient she has a right to speak to a social psychologist regarding all care. Informed patient she has a right to participate in any and all discharge planning. Patient verbalized understanding and agreed to discharge plan home on hospice. Addendum: 06/16/20 at 1615 by DIVINE LYNN Amended: Links added.
[2020-06-16 16:21] VITALS: BP 118/73
--- NOTE | 2020-06-16 19:25 | NUR ---
Closing Shift Note Patient resting in bed. No distress noted. Report given. Will endorse care to the curing pickling packer RN.
--- NOTE | 2020-06-16 19:30 | NUR ---
Opening Shift Note Assumed care of patient, awake and alert. Reported pain.Pain med will be given. Instructed on POC and to call for assist PRN, will continue to monitor for changes Q1hr and PRN.
[2020-06-16] MEDS: LATANOPROST 0.005 % OPTH(EYE) SOL 2.5ML EACHEYE SCH (21:18)
[2020-06-16] MEDS: GABAPENTIN 300 MG CAP PO SCH (21:20)
[2020-06-16] MEDS: ATORVASTATIN 20 MG TAB PO SCH (21:20)
[2020-06-16 22:00] VITALS: BP 127/80
[2020-06-17] MEDS: ONDANSETRON ODT 4 MG TAB PO SCH ×5 (00:05→23:15)
[2020-06-17] MEDS: IPRATROPIUM BROM 0.5 MG/2.5ML INH SOL NEB SCH ×4 (00:22→18:48)
[2020-06-17] MEDS: ALBUTEROL SULF 2.5 MG/0.5ML(0.5%) NEB SOLN NEB SCH ×4 (00:22→18:47)
[2020-06-17] MEDS: HYDROmorphone HCL 2 MG/ML VL IV PRN ×7 (01:33→23:16)
[2020-06-17 05:00] VITALS: BP_SYST 132
[2020-06-17] MEDS: SUCRALFATE 1 GM/10 ML ORAL SUSP PO SCH ×4 (06:05→23:14)
[2020-06-17] MEDS: CARBIDOPA W LEVODOPA 25/100mg TABLET PO SCH ×3 (06:05→23:14)
[2020-06-17] MEDS: LORazepam 0.5 MG TAB PO PRN ×2 (06:05→14:11)
[2020-06-17] MEDS: methylPREDNISolone SOD SUCC 40 MG/ML VL IV SCH ×2 (06:05→14:11)
[2020-06-17] MEDS: cefTRIAXone 1GM/50ML D5W 50 ML IV SCH (08:16)
[2020-06-17 09:00] VITALS: BP 152/90
[2020-06-17] MEDS: FUROSEMIDE 20 MG TAB PO SCH (09:13)
[2020-06-17] MEDS: PANTOPRAZOLE 40 MG TAB PO SCH (09:14)
[2020-06-17] MEDS: DOXYCYCLINE 100 MG TAB/CAP PO SCH ×2 (09:14→23:15)
[2020-06-17] MEDS: DULoxetine HCL 30 MG CAP PO SCH (09:14)
[2020-06-17] MEDS: LOSARTAN POTASSIUM 50 MG TAB PO SCH (09:14)
[2020-06-17] MEDS: busPIRone HCL 10 MG TAB PO SCH ×2 (09:15→23:15)
[2020-06-17] MEDS: amLODIPine BESYLATE 5 MG TAB PO SCH (09:15)
[2020-06-17] MEDS: POTASSIUM CHL 10 Meq TABLET PO SCH (09:16)
[2020-06-17] MEDS: ENOXAPARIN SOD 40 MG/0.4 ML SYRINGE SC SCH (09:17)
[2020-06-17] MEDS: BRIMONIDINE 0.2% OPTH Soln 5ml EACHEYE SCH ×2 (09:18→23:16)
--- NOTE | 2020-06-17 10:51 | NUR ---
Call to Grandson Call to Grandson at this time per patient's request. No answer. Voice mailbox is full, therefore, unable to leave message.
--- NOTE | 2020-06-17 11:20 | NUR ---
Refusal of Pain medication Brought in PRN Dilaudid for patient at this time along with other scheduled medications. Patient states, "I did not call for pain medication." Explained to patient that because she was complaining of pain a few minutes ago, the medication was brought in. Patient states, "I will call when I am ready for it."
[2020-06-17 12:09] VITALS: BP 152/90
--- NOTE | 2020-06-17 12:52 | NUR ---
Pain Administered Dilaudid for patient at this time. Patient is complaining of pain 10/10 to back. Will reassess according to emar.
[2020-06-17 13:00] VITALS: BP 118/76
--- NOTE | 2020-06-17 13:22 | NUR ---
Pain reassessment Patient is complaining of pain 10/10 that was unrelieved by Dilaudid administration. Patient states, "I didn't get any pain medication." Educated patient that Dilaudid was administered approximately 30 minutes ago. Reinforced the events surrounding medication administration. Patient states, "if you say so." Will have a witness verify administration from this point on.
--- NOTE | 2020-06-17 15:51 | NUR ---
re-assessment Per Luz Marina at [facility] she cannot accept patient on service. Patient agrees to try and find a hospice that will take her. Patient request once a hospice is found to call Fady her grandson [phone]. order has been re-directed to [facility], [facility], and [facility]. Waiting on reply back now. Addendum: 06/17/20 at 1555 by Elisha LYNN Amended: Links added.
--- NOTE | 2020-06-17 16:16 | NUR ---
re-assessment Received a page to call patients brandan Shrestha. No answer. I called and left a message for him to return my call. Addendum: 06/17/20 at 1617 by Elisha LYNN Amended: Links added.
--- NOTE | 2020-06-17 16:20 | NUR ---
Pain Medication Administered pain medication, Dilaudid, with Summer RN standing by. Patient feels that she hasn't been giving pain medication appropriately so Crystal RN to verify.
--- NOTE | 2020-06-17 16:50 | NUR ---
Pain reassessment Assessed patient's pain at this time. Patient states that pain is 10/10. Asked patient if the pain medication, Dilaudid, relieved pain at all. Patient states, " I didn't get anything." Reminded patient that the medication was administered with GRISELDA Rojas standing by to witness. Patient states, "Well, I don't feel anything." Asked the patient if she would like anything else or another medication at this time. Patient refused.
[2020-06-17 17:00] VITALS: BP 130/87
--- NOTE | 2020-06-17 18:58 | NUR ---
Closing Shift Note Patient resting in bed. No distress noted. Will endorse care to the barrel rifler operator RN.
--- NOTE | 2020-06-17 19:50 | NUR ---
Pain Pt reporting pain 10/10. Administered Dilaudid as ordered with pt present for verification of med being drawn. Will continue to monitor.
--- NOTE | 2020-06-17 20:30 | NUR ---
Pain reassessment Pt reporting pain 06/30. States "that's the first time I have felt some relief all day". Pt stated "I think they were watering down the medication or something" Educated pt that we do not water down medication. Will continue to monitor.
[2020-06-17 21:32] VITALS: BP 115/73
[2020-06-17] MEDS: ATORVASTATIN 20 MG TAB PO SCH (23:15)
[2020-06-17] MEDS: GABAPENTIN 300 MG CAP PO SCH (23:15)
[2020-06-17] MEDS: LATANOPROST 0.005 % OPTH(EYE) SOL 2.5ML EACHEYE SCH (23:16)
--- NOTE | 2020-06-18 01:55 | NUR ---
Nursing Note Rounded on pt to find her on the phone with her grandson asking him to come get her. When asked what is going on she stated "I'm dying and I want to go home to be with Domenic". This RN asked why she thinks she is dying to which she said "I can feel it and you know that I'm dying". VS: BP 149/98, P 105, R 16, O2 94% on 3L NC. Spoke with brandan Sheth and he stated that "she can be dramatic and she's done this many times before". Educated pt on the need for staying in the hospital for further treatment and for her to leave AMA would not be a haddad decision. At this time the pt was starting to fall asleep and was no longer answering questions. The son Prince was on the phone and I asked him what the family would like to do at this time. He stated " Its best she stays there because we would probably just have to bring her back." At this time the pt was asleep with even and unlabored respirations. This RN told the son Prince that the pt is on a tele monitor and will be monitored continuously while she is here. Stefano Morrison verbalized understanding and agreed that the pt should stay in the hospital. This RN will continue to monitor the pt Q1hr and PRN.
--- NOTE | 2020-06-18 02:50 | NUR ---
Code Assist This RN went to check on pt after noticing extreme tachycardia on the tele monitor. Pt was found garbling, gasping for air, with uneven and labored respirations, and not responsive to verbal commands. Pt was noted to be very tense and stiff in all 4 extremities. Code assist was called. BP:146/100, P:128, BS 131. After several attempts by the team to get a response, medications were ordered and given per MD Sigala (see EMAR). VS reassessed BP 133/87, P:104. Pts body started to relax, respirations became even and unlabored, and pt closed her eyes. No distress was noted. Per Dr. Sigala, pt stable at this time. Will continue to monitor
[2020-06-18] MEDS ORDERED: NALOXONE HCL 0.4 MG/ML VIAL IV ONE (02:58)
[2020-06-18] MEDS ORDERED: LORazepam 2MG/ML-1ML VIAL IV ONE (02:58)
[2020-06-18] MEDS ORDERED: NALOXONE HCL 0.4 MG/ML VIAL ONE (02:58)
[2020-06-18] MEDS ORDERED: LORazepam 2MG/ML-1ML VIAL ONE (02:59)
[2020-06-18 04:37] VITALS: BP 144/84
[2020-06-18 05:43] LABS: Basophils # (auto) 0.1 10 ^3/uL (0-0.2); Basophils % (auto) 0.8 % (0.0-2.0); Eosinophils # (auto) 0 10 ^3/uL (0-0.8); Eosinophils % (auto) 0.1 % (0.0-7.0); Hematocrit 31.9 % (36.0-46.0); Hemoglobin 10.4 g/dL (12.2-16.2); Lymphocytes # (auto) 1.1 10 ^3/uL (0.4-5.4); Lymphocytes % (auto) 17.4 % (10.0-50.0); Mean Corpuscular Hemoglobin 27.5 pg (28.0-32.0); Mean Corpuscular Hgb Conc. 32.5 g/dL (32.0-36.0); Mean Corpuscular Volume 84.7 fL (80.0-100.0); Monocytes # (auto) 1.1 10 ^3/uL (0-1.3); Monocytes % (auto) 16.8 % (0.0-12.0); Neutrophils # (auto) 4.2 10 ^3/uL (1.6-8.6); Neutrophils % (auto) 64.9 % (37.0-80.0); Platelet Count (auto) 420 10^3/uL (140-450); Red Blood Cells 3.77 10^6/uL (4.0-5.20); Red Cell Distribution Width 15.9 % (11.8-14.3); White Blood Cell 6.5 10^3/uL (4.4-10.8)
--- NOTE | 2020-06-18 05:45 | NUR ---
Called pts son Prince Password verified. Updated son on events that occurred and POC for pt. Son verbalized understanding.
[2020-06-18] MEDS: CARBIDOPA W LEVODOPA 25/100mg TABLET PO SCH ×2 (06:00→15:03)
[2020-06-18] MEDS: ONDANSETRON ODT 4 MG TAB PO SCH ×2 (06:00→11:37)
[2020-06-18 06:08] LABS: Calcium 8.5 mg/dL (8.5-10.1); Potassium 3.4 mmol/L (3.5-5.1)
[2020-06-18 06:12] LABS: BUN/Creatinine Ratio 31.1; Bilirubin, Total 0.2 mg/dL (0.2-1.0); Total Protein 6.7 g/dL (6.4-8.2)
[2020-06-18] MEDS: SUCRALFATE 1 GM/10 ML ORAL SUSP PO SCH ×2 (07:00→11:37)
[2020-06-18] MEDS: ALBUTEROL SULF 2.5 MG/0.5ML(0.5%) NEB SOLN NEB SCH ×3 (07:04→12:59)
[2020-06-18] MEDS: IPRATROPIUM BROM 0.5 MG/2.5ML INH SOL NEB SCH ×3 (07:04→12:59)
--- NOTE | 2020-06-18 07:22 | NUR ---
Closing Note Pt is sleeping in bed. No distress, SOB or pain noted at this time. Care endorsed to Francisca VILLALOBOS.
--- NOTE | 2020-06-18 08:00 | NUR ---
OPENING SHIFT NOTE: PATIENT ASLEEP RESTING IN BED. RESPIRATIONS EVEN AND UNLABORED, NOTED NO SIGNS OF DISTRESS. UPDATE CARE BOARD WITH DAILY PLAN OF CARE. BED ALARM IN PLACE, CALL LIGHT PLACED ONTO BED WITHIN REACH. WILL CONTINUE TO MONITOR.
[2020-06-18] MEDS ORDERED: POTASSIUM EFFERVESENT TAB 25 MEQ PO ONE (09:30)
[2020-06-18] MEDS: DULoxetine HCL 30 MG CAP PO SCH (09:57)
[2020-06-18] MEDS: busPIRone HCL 10 MG TAB PO SCH (09:57)
[2020-06-18] MEDS: BRIMONIDINE 0.2% OPTH Soln 5ml EACHEYE SCH (09:57)
[2020-06-18] MEDS: cefTRIAXone 1GM/50ML D5W 50 ML IV SCH (09:57)
[2020-06-18] MEDS: amLODIPine BESYLATE 5 MG TAB PO SCH (09:58)
[2020-06-18] MEDS: LOSARTAN POTASSIUM 50 MG TAB PO SCH (09:58)
[2020-06-18] MEDS: POTASSIUM CHL 10 Meq TABLET PO SCH (09:58)
[2020-06-18] MEDS: ENOXAPARIN SOD 40 MG/0.4 ML SYRINGE SC SCH (09:59)
[2020-06-18] MEDS: DOXYCYCLINE 100 MG TAB/CAP PO SCH (09:59)
[2020-06-18] MEDS: PANTOPRAZOLE 40 MG TAB PO SCH (09:59)
[2020-06-18] MEDS ORDERED: predniSONE 20 MG TAB PO SCH (10:00)
--- NOTE | 2020-06-18 10:11 | NUR ---
MD SALONI JUAN. PRESCRIPTION FAXED TO [facility] FOR MANAGER SUPPLY CHAIN PLANNING ON DC.
--- NOTE | 2020-06-18 10:30 | NUR ---
POM: PATIENT'S OWN MEDS PICKED UP FROM PHARMACY, PATIENT RECEIVED MEDS AND SIGNED FOR REPOSSESSION.
[2020-06-18] MEDS: HYDROcodone-ACET 10/325MG TAB PO PRN ×2 (10:31→15:04)
--- NOTE | 2020-06-18 10:31 | NUR ---
SON JAYA: THIS RN CALLED SON TO NOTIFY OF PATIENT'S PLAN OF CARE AND DISCHARGE. JAYA WORKS [employer] SAL[employer] REPRESENTATIVE AND TAKES A SLEEPING PILL SO HE CANNOT COME TO QUILT STUFFER PATIENT UNTIL THIS AFTERNOON. GRANDSON DOES NOT HAVE A LICENSE, AND GRANDMOTHER IS UNABLE TO DRIVE WELL. PER SON, HOSPICE [employer], [facility], SPOKE WITH HIM THIS MORNING AND HAS BEGUN HOSPICE PLANNING FOR HOME.
[2020-06-18 10:51] VITALS: BP 136/82
[2020-06-18] MEDS: FUROSEMIDE 20 MG TAB PO SCH (11:37)
[2020-06-18 11:38] VITALS: BP 136/82
--- NOTE | 2020-06-18 12:30 | NUR ---
PAIN: PATIENT AWOKEN FROM SLEEP. REQUESTING PAIN MEDICINE FOR BACK AND NECK 03/30. INSTRUCTED ON MEDICATION SCHEDULE FOR REPORTED PAIN SCALE. NORCO NOT DUE UNTIL 14:30, PATIENT OFFERED TYLENOL, PATIENT DECLINED TYLENOL. ICE PACK GIVEN FOR LATERAL NECK.
--- NOTE | 2020-06-18 14:30 | NUR ---
STANDBY ASSIST: PATIENT FULLY INDEPENDENT, STANDBY ASSIST TO COMMODE. TOLERATED WELL, ABLE TO PERFORM ADL'S.
--- NOTE | 2020-06-18 14:37 | NUR ---
3 ATTEMPTS MADE FOR PT TREATMENT TODAY. PT STATES SHE IS VERY TIRED AND WOULD LIKE TO SLEEP. PT IS VERY LETHARGIC AND ONLY OPENS EYES TO RESPOND TO SINGLE QUESTION BEFORE RETURNING TO SLEEP. WILL ATTEMPT AGAIN TOMORROW.
--- NOTE | 2020-06-18 14:47 | NUR ---
CASE MANAGEMENT: PER RYAN JULES TO SEND PATIENT HOME WITH PORTABLE OXYGEN TANK. TAXI VOUCHER TO BE GIVEN TO PATIENT FOR DC RIDE HOME. BOTTOM BRUSHER YURIDIA MADE AWARE. TAXI TO ARRIVE APPROX 15:30.
--- NOTE | 2020-06-18 15:14 | NUR ---
FAMILY UPDATED: THIS RN SPOKE WITH FAMILY, GRANDSON BECKIE, USING BEDSIDE TELEPHONE. PATIENT WISHES TO GO HOME, BECKIE CONCERNED ABOUT, "GETTING HER ROOM READY." VERBALIZED UNDERSTANDING PATIENT WILL BE SENT HOME WITH AN OXYGEN TANK AND CONFIRMED THEY HAVE A ROLLER CART FOR THE TANK. WHILE ON PHONE MESSAGES RELAYED BETWEEN PATIENT AND GRANDSON EXCHANGED, PATIENT TO BE SENT HOME IN CAB, AND STATED "I WANT TO BE HOME FOR MY BIRTHDAY."
--- NOTE | 2020-06-18 15:42 | NUR ---
DISCHARGE: Discharge instructions given as ordered. Encourage to follow up with PMD as instructed. All questions and concerns addressed. Patient verbalized understanding. Patient own med repossession signed and placed in belongings bag. IV's removed with catheter intact, pressure dressing applied. Telemetry unit returned to ICU. Patient taken to taxi cab via wheelchair with all personal belongings, accompanied by staff and family member. No distress noted at time of departure. Patient left with Hospital oxygen tank, per child support case officer Radha approval, not instructed to return tank to the hospital. Grandpop Shrestha and Father Prince made aware of approximate arrival time home.
--- NOTE | 2020-06-19 10:41 | NUR ---
CALL FROM [facility]: PER JAYA, YESTERDAY [facility] WAS TO CALL BACK IN THE AFTERNOON. SEVERAL ATTEMPTS MADE TO REACH JAYA AND BECKIE THROUGHOUT THE DAY. UNABLE TO SET UP HOSPICE, SHE IS GOING TO TRY AGAIN TODAY.
== END 2020-06-18 15:49 | disposition hospice, home (50) | DRG 133 ==
LOC: ER 10:56 → EDBD 10:56 → TELE 10:57 → TELE-E-ADS 16:14 → TELE-EAST 06-15 09:23 → TELE-CENTR 06-15 20:34
PROVIDERS: ATTEND Internal Medicine
DX: J96.01 Acute respiratory failure with hypoxia (principal); J44.1 Chronic obstructive pulmonary disease with (acute) exacerbation; G20 Parkinson's disease; J20.9 Acute bronchitis, unspecified; J44.0 Chronic obstructive pulmonary disease with (acute) lower respiratory infection; N39.0 Urinary tract infection, site not specified; F41.9 Anxiety disorder, unspecified; K43.9 Ventral hernia without obstruction or gangrene; G89.29 Other chronic pain; K21.9 Gastro-esophageal reflux disease without esophagitis; D63.8 Anemia in other chronic diseases classified elsewhere; F31.9 Bipolar disorder, unspecified; E87.6 Hypokalemia; E44.0 Moderate protein-calorie malnutrition; E78.5 Hyperlipidemia, unspecified; F11.20 Opioid dependence, uncomplicated; I11.0 Hypertensive heart disease with heart failure; I25.10 Atherosclerotic heart disease of native coronary artery without angina pectoris; I50.9 Heart failure, unspecified; Z20.828 Contact with and (suspected) exposure to other viral communicable diseases; Z51.5 Encounter for palliative care; M54.5 Low back pain; Z79.899 Other long term (current) drug therapy; Z80.8 Family history of malignant neoplasm of other organs or systems; Z82.0 Family history of epilepsy and other diseases of the nervous system; Z83.3 Family history of diabetes mellitus; Z87.891 Personal history of nicotine dependence; Z90.710 Acquired absence of both cervix and uterus; Z88.5 Allergy status to narcotic agent; Z88.0 Allergy status to penicillin; J45.901 Unspecified asthma with (acute) exacerbation
CPT/HCPCS: 36415; 71045; 80048; 80053; 81001; 82728; 82962; 83605; 83615; 83735; 83880; 84484; 85025; 85379; 86141; 87040; 87086; 87426; 93005; 94640; 97110; 97116; 97163; 97530; G0378; J0696; J1100; J2405; Q0162